=== PATIENT | male | born 1990 | race Caucasian/White ===

== ENCOUNTER 2016-11-27 19:07 | Emergency (ER) | payer SELFPAY ==
[2016-11-27] MEDS ORDERED: NS 0.9% 1000 ML* 2,000 ML IV ONE (20:26)
[2016-11-27] MEDS ORDERED: Morphine INJ* 4 MG/ML 1 ML CARPUJECT IV ONE (20:26)
[2016-11-27] MEDS ORDERED: Ondansetron INJ* 2 MG/ML VIAL IV ONE ×2 (20:26→21:17)
[2016-11-27 20:40] LABS: Hematocrit 52 % (42-52); Hemoglobin 17.8 g/dl (14.0-18.0); Mean Corpuscular HGB Conc 34 g/dl (31-36); Mean Corpuscular Hemoglobin 28 pg (27-31); Mean Corpuscular Volume 83 fL (80-94); Mean Platelet Volume 9 um3 (7.4-10.4); Red Blood Count 6.29 10^6/ul (4.0-5.4); Red Cell Distribution Width 13 % (10.5-15)
[2016-11-27 20:53] LABS: BUN/Creatinine Ratio 14.9 (8-20); Calcium 10.2 mg/dL (8.6-10.3); EGFR African American 122.9 (>60); EGFR Non-African American 95.6 (>60); Potassium 3.2 mmol/L (3.5-5.0); Total Bilirubin 0.9 mg/dL (0.2-1.0); Troponin I 0.01 ng/mL (<0.04)
--- NOTE | 2016-11-27 21:04 | RAD ---
INDICATION: Fever. Chest pain COMPARISON: January 26, 2013 TECHNIQUE: PA and lateral dual-energy views were obtained. FINDINGS: Bones/Soft Tissues: There are no acute bony findings. Cardiomediastinal: The cardiomediastinal silhouette is normal. Lungs: There are no infiltrates. Pleura: There are no pleural effusions. Other: None IMPRESSION: NORMAL CHEST.
[2016-11-27] MEDS ORDERED: Ondansetron INJ* 2 MG/ML VIAL ONE (21:16)
[2016-11-27] MEDS ORDERED: Iohexol 300* (CONTRAST) 10 ML SDV IV ONE (21:38)
[2016-11-27] MEDS ORDERED: Potassium Chlor TAB* 20 MEQ TAB.ER PO ONE (21:52)
[2016-11-27] MEDS ORDERED: Morphine INJ* 2 MG/ML 1 ML CARPUJECT IV ONE (22:07)
--- NOTE | 2016-11-27 22:10 | RAD ---
INDICATION: Fever and chest pain. Epigastric pain. Elevated white blood cell count COMPARISON: CT May 18, 2013 TECHNIQUE: Axial source images were obtained from the hemidiaphragms to the symphysis pubis following administration of oral and intravenous contrast. 125 mL Omnipaque 300 was utilized. Coronal and sagittal reconstructed images were acquired. Lung bases: The lung bases are clear. Liver: The liver is enlarged with findings of hepatic steatosis. There are no masses. There is no ductal dilatation. Gallbladder: There are no calcified gallstones. There is no evidence of wall thickening or pericholecystic fluid. Spleen: The spleen is normal in size. There are no masses. Pancreas: There is no focal pancreatic mass or ductal dilatation. Adrenal glands: There is no evidence of adrenal mass. Kidneys: The kidneys are normal in size and position. There are prompt nephrograms and there is prompt excretion bilaterally. There are no renal parenchymal masses. There is no evidence of nephrolithiasis. Adenopathy: There is no evidence of adenopathy by size criteria. Fluid collections: There are no free or localized fluid collections. Vessels:There are no significant atherosclerotic changes involving the aorta. There is no focal aneurysm. The iliac vessels are normal in caliber. The IVC appears normal. GI tract: There are no acute CT bowel findings. There is no obstruction. The stomach and small bowel appear normal. The lower GI tract is normal. The cecum, ileocecal valve, and terminal ileum appear normal. The appendix is visualized and appear normal. Pelvic organs: The prostate and seminal vesicles appear normal Bladder: There are no bladder masses. Abdominal and pelvic soft tissues: The extraperitoneal abdominal and pelvic soft tissues appear normal.. Osseous structures: There are no acute osseous findings. Other: None IMPRESSION: NO ACUTE CT FINDINGS. NO MASS OR INFLAMMATORY CHANGE.
[2016-11-27] MEDS ORDERED: Oseltamivir CAP* 75 MG PO ONE (22:24)
[2016-11-27 22:32] VITALS: BP 146/99
--- NOTE | 2016-11-27 22:35 | ED ---
Leigha Carr SooYoung, scribed for Will Hirsch on 11/27/16 at 2000 . Abdominal Pain/Male - HPI Summary HPI Summary: A 26 y/o M presents to ED with c/o abd pain onset two days. He notes having had the flu recently and had recovered. But two days ago, abd pain began with associated sx: mid-sternal chest pain and vomiting. Pt lost count of emesis episodes. Denies diarrhea. After 12 hours, he felt better, but a few hours later these sx returned. He rates the pain as 8 out of 10 currently. No PSHx. Pt is a smoker, non-drinker. PMHx: asthma. NKA. - History of Current Complaint Chief Complaint: EDAbdPain Stated Complaint: VOMITING Time Seen by Provider: 11/27/16 19:55 Hx Obtained From: Patient Onset/Duration: Lasting Days, Still Present Timing: Constant Severity Initially: Moderate Severity Currently: Moderate Pain Intensity: 8 Pain Scale Used: 0-10 Numeric Location: Diffuse Associated Signs And Symptoms: Positive: Chest Pain, Vomiting. Negative: Diarrhea - Allergies/Home Medications Allergies/Adverse Reactions: Allergies Allergy/AdvReac Type Severity Reaction Status Date / Time No Known Allergies Allergy Verified 11/27/16 19:11 PMH/Surg Hx/FS Hx/Imm Hx Previously Healthy: Yes Respiratory History: Reports: Hx Asthma GI History: Reports: Hx Gastroesophageal Reflux Disease, Hx Gastrointestinal Bleed Denies: Other GI Disorders - none History: Denies: Other Problems/Disorders Musculoskeletal History: Reports: Hx Orthopedic Injury - broken right hand- surgery to repair - Surgical History Surgery Procedure, Year, and Place: Repair of right broken wrist/hand - Immunization History Date of Tetanus Vaccine: Unsure Date of Influenza Vaccine: never Infectious Disease History: Yes Infectious Disease History: Denies: Traveled Outside the [place] in Last 30 Days - Family History Known Family History: Positive: Diabetes - Social History Occupation: Unemployed - OTHER Lives: Alone Alcohol Use: None Hx Substance Use: Yes Substance Use Type: Reports: Marijuana Hx Tobacco Use: Yes Smoking Status (MU): Current Every Day Smoker Review of Systems Positive: Chest Pain Positive: Abdominal Pain, Vomiting. Negative: Diarrhea All Other Systems Reviewed And Are Negative: Yes Physical Exam Triage Information Reviewed: Yes Vital Signs On Initial Exam: Initial Vitals Temp Pulse Resp BP Pulse Ox 97.6 F 97 18 152/96 97 11/27/16 19:09 11/27/16 19:09 11/27/16 19:09 11/27/16 19:09 11/27/16 19:09 Vital Signs Reviewed: Yes Appearance: Positive: Well-Appearing, No Pain Distress Skin: Positive: Warm, Skin Color Reflects Adequate Perfusion, Dry Head/Face: Positive: Normal Head/Face Inspection Eyes: Positive: EOMI, PILAR ENT: Positive: Normal ENT inspection Neck: Positive: Supple, Nontender Respiratory/Lung Sounds: Positive: Clear to Auscultation, Breath Sounds Present Cardiovascular: Positive: RRR, Pulses are Symmetrical in both Upper and Lower Extremities Abdomen Description: Positive: Soft, Other: - DIFFUSE ABD TENDERNESS Bowel Sounds: Positive: Present Musculoskeletal: Positive: Normal, Strength/ROM Intact - FROMx4 Neurological: Positive: Normal, Sensory/Motor Intact, Alert, Oriented to Person Place, Time Diagnostics - Vital Signs Vital Signs Temp Pulse Resp BP Pulse Ox 11/27/16 19:09 97.6 F 97 18 152/96 97 - Laboratory Result Diagrams: 11/27/16 20:00 11/27/16 20:00 Lab Statement: Any lab studies that have been ordered have been reviewed, and results considered in the medical decision making process. - Radiology CXR Xray Interpretation: No Acute Changes - IMPRESSION: NML CHEST Radiology Interpretation Completed By: Radiologist - CT A/P with CT CT Interpretation: No Acute Changes - IMPRESSION: No acute CT findings. No mass or inflammatory change. CT Interpretation Completed By: Radiologist Re-Evaluation - Re-Evaluation 1 Re-Evaluation Time: 22:21 Change: Unchanged Comment: Discussing results with pt. Abdominal Pain Fem Course/Dx - Course Course Of Treatment: MDM: Pt is a 26 y/o M with abd pain for past two days. Associated sx: vomiting, chest pain. Ordered blood work, UA, Influenza A and B, A/P CT and CXR. Pt given fluids, Zofran, Morphine. Trop at 2000 is 0.01. CXR is neg. A/P CT is negative. Labs show Influenza A is positive. Pt will be discharged home with Tamiflu and IBP to follow-up with PCP in 3 days. Pt voiced understanding. - Diagnoses Provider Diagnoses: Flu, Fever Discharge - Discharge Plan Condition: Stable Disposition: HOME Prescriptions: Ibuprofen TAB* [Motrin TAB* 600 MG] 600 mg PO Q8H PRN #21 tab PRN Reason: Pain Oseltamivir CAP* [Tamiflu CAP*] 75 mg PO BID 10 Days Oseltamivir CAP* [Tamiflu CAP*] 75 mg PO BID #10 cap Patient Education Materials: Oseltamivir (By mouth), Influenza (ED), Ibuprofen (By mouth) Referrals: No Primary Care Phys,NOPCP [Primary Care Provider] - 3 Days [facility]IAN REFERRAL [Outside] Additional Instructions: Follow up with your primary care physician in 3 days. Return to ED if your symptoms return or worsen. The documentation as recorded by the Leigha haywood SooYoung accurately reflects the service I personally performed and the decisions made by Joycelyn torres Emmanuel.
== END 2016-11-27 22:40 | disposition home or self-care (01) ==
LOC: ED 19:07
DX: J11.1 Influenza due to unidentified influenza virus with other respiratory manifestations (principal); F17.200 Nicotine dependence, unspecified, uncomplicated; J45.909 Unspecified asthma, uncomplicated; K21.9 Gastro-esophageal reflux disease without esophagitis
CPT/HCPCS: 36415; 71020; 74177; 80053; 83605; 84484; 85025; 85610; 85730; 86703; 87502; 96360; 96374; 96375; 96376; 99283; A9270-GY; J2270; J2405; Q9967

== ENCOUNTER 2016-12-26 05:37 | Emergency (ER) | payer SELFPAY ==
[2016-12-26] MEDS ORDERED: Ondansetron INJ* 2 MG/ML VIAL IV ONE (05:48)
[2016-12-26] MEDS ORDERED: NS 0.9% 1000 ML* 1,000 ML IV ONE (05:48)
[2016-12-26] MEDS ORDERED: Ketorolac INJ* 30 MG/ML 1 ML VIAL IM ONE (05:48)
[2016-12-26 06:34] LABS: Hematocrit 48 % (42-52); Mean Corpuscular HGB Conc 34 g/dl (31-36); Mean Corpuscular Hemoglobin 29 pg (27-31); Mean Corpuscular Volume 85 fL (80-94); Mean Platelet Volume 9 um3 (7.4-10.4); Red Blood Count 5.56 10^6/ul (4.0-5.4); Red Cell Distribution Width 14 % (10.5-15); White Blood Count 11.3 10^3/ul (3.5-10.8)
[2016-12-26 06:48] LABS: ALT 36 U/L (7-52); Albumin 4.5 g/dL (3.2-5.2); Alkaline Phosphatase 127 U/L (34-104); BUN/Creatinine Ratio 8.2 (8-20); Blood Urea Nitrogen 7 mg/dL (6-24); CO2 Carbon Dioxide 29 mmol/L (22-32); Calcium 9.7 mg/dL (8.6-10.3); Chloride 95 mmol/L (101-111); EGFR Non-African American 107.3 (>60); Globulin 3.5 g/dL (2-4); Glucose 163 mg/dL (70-100); Lipase 14 U/L (11.0-82.0); Sodium 134 mmol/L (133-145)
[2016-12-26] MEDS ORDERED: Iohexol 300* (CONTRAST) 10 ML SDV IV ONE (07:05)
--- NOTE | 2016-12-26 07:07 | ED ---
Georgie Carr Claudia, scribed for Will Hirsch on 12/26/16 at 0544 . Complex/Multi-Sys Presentation - HPI Summary HPI Summary: 26 YEAR OLD MALE PRESENTS TO THE ED WITH N/V AND ABD PAIN. PT NOTES SUDDEN ONSET OF SX LAST NIGHT AROUND 2200. HE STATES ASSOCIATED SX OF FEVER. HE STATES THAT HE HAS BEEN UNABLE TO PRODUCE A BM. PT ALSO DENIES PSHx OF THE ABDOMEN. HE DENIES ANY ALLEVIATING OR AGGRAVATING FACTORS FOR HIM Sx. - History Of Current Complaint Chief Complaint: EDFluSymptoms Time Seen by Provider: 12/26/16 05:42 Hx Obtained From: Patient Onset/Duration: Gradual Onset, Lasting Hours - 24 HOURS, Still Present Timing: Constant Associated Signs And Symptoms: Positive: Nausea, Vomiting, Abdominal Pain, Fever - Allergies/Home Medications Allergies/Adverse Reactions: Allergies Allergy/AdvReac Type Severity Reaction Status Date / Time No Known Allergies Allergy Verified 11/27/16 19:11 PMH/Surg Hx/FS Hx/Imm Hx Previously Healthy: Yes Endocrine/Hematology History: Denies: Hx Diabetes Respiratory History: Reports: Hx Asthma GI History: Reports: Hx Gastroesophageal Reflux Disease, Hx Gastrointestinal Bleed Denies: Other GI Disorders - none History: Denies: Other Problems/Disorders Musculoskeletal History: Reports: Hx Orthopedic Injury - broken right hand- surgery to repair - Surgical History Surgery Procedure, Year, and Place: Repair of right broken wrist/hand - Immunization History Date of Tetanus Vaccine: Unsure Date of Influenza Vaccine: never Infectious Disease History: Yes Infectious Disease History: Denies: Traveled Outside the [place] in Last 30 Days - Family History Known Family History: Positive: Diabetes - Social History Alcohol Use: None Hx Substance Use: Yes Substance Use Type: Reports: Marijuana Hx Tobacco Use: Yes Smoking Status (MU): Current Every Day Smoker Review of Systems Positive: Fever Eyes: Negative ENT: Negative Cardiovascular: Negative Respiratory: Negative Positive: Abdominal Pain, Vomiting, Nausea. Negative: Diarrhea Genitourinary: Negative Musculoskeletal: Negative Skin: Negative Neurological: Negative Psychological: Normal All Other Systems Reviewed And Are Negative: Yes Physical Exam Triage Information Reviewed: Yes Vital Signs On Initial Exam: Initial Vitals Temp Pulse Resp BP Pulse Ox 99.1 F 90 16 156/88 98 12/26/16 05:39 12/26/16 05:39 12/26/16 05:39 12/26/16 05:39 12/26/16 05:39 Vital Signs Reviewed: Yes Appearance: Positive: Well-Appearing, No Pain Distress Skin: Positive: Warm, Skin Color Reflects Adequate Perfusion, Dry Head/Face: Positive: Normal Head/Face Inspection Eyes: Positive: EOMI, PILAR ENT: Positive: Normal ENT inspection Neck: Positive: Supple, Nontender Respiratory/Lung Sounds: Positive: Clear to Auscultation, Breath Sounds Present Cardiovascular: Positive: RRR, Pulses are Symmetrical in both Upper and Lower Extremities Abdomen Description: Positive: Soft. Negative: Nontender - DIFFUSE TENDERNESS Musculoskeletal: Positive: Normal, Strength/ROM Intact Neurological: Positive: Normal, Sensory/Motor Intact, Alert, Oriented to Person Place, Time Diagnostics - Vital Signs Vital Signs Temp Pulse Resp BP Pulse Ox 12/26/16 05:39 99.1 F 90 16 156/88 98 - Laboratory Lab Results: Lab Results 12/26/16 12/26/16 12/26/16 Range/Units 05:58 06:25 06:25 WBC 11.3 H (3.5-10.8) 10^3/ul RBC 5.56 H (4.0-5.4) 10^6/ul Hgb 16.0 (14.0-18.0) g/dl Hct 48 (42-52) % MCV 85 (80-94) fL MCH 29 (27-31) pg MCHC 34 (31-36) g/dl RDW 14 (10.5-15) % Plt Count 279 (150-450) 10^3/ul MPV 9 (7.4-10.4) um3 Neut % (Auto) 74.9 (38-83) % Lymph % (Auto) 14.7 L (25-47) % [place] % (Auto) 9.4 H (1-9) % Eos % (Auto) 0.2 (0-6) % Baso % (Auto) 0.8 (0-2) % Absolute Neuts (auto) 8.5 H (1.5-7.7) 10^3/ul Absolute Lymphs (auto) 1.7 (1.0-4.8) 10^3/ul Absolute Monos (auto) 1.1 H (0-0.8) 10^3/ul Absolute Eos (auto) 0 (0-0.6) 10^3/ul Absolute Basos (auto) 0.1 (0-0.2) 10^3/ul Absolute Nucleated RBC 0.01 10^3/ul Nucleated RBC % 0.1 Sodium 134 (133-145) mmol/L Potassium TNP Chloride 95 L (101-111) mmol/L Carbon Dioxide 29 (22-32) mmol/L Anion Gap TNP BUN 7 (6-24) mg/dL Creatinine 0.85 (0.67-1.17) mg/dL Est GFR ( Amer) 138.0 (>60) Est GFR (Non-Af Amer) 107.3 (>60) BUN/Creatinine Ratio 8.2 (8-20) Glucose 163 H (70-100) mg/dL Calcium 9.7 (8.6-10.3) mg/dL Total Bilirubin 0.30 (0.2-1.0) mg/dL AST TNP ALT 36 (7-52) U/L Alkaline Phosphatase 127 H (34-104) U/L Total Protein 8.0 (6.4-8.9) g/dL Albumin 4.5 (3.2-5.2) g/dL Globulin 3.5 (2-4) g/dL Albumin/Globulin Ratio 1.3 (1-3) Lipase 14 (11.0-82.0) U/L Influenza A (Rapid) Negative (Negative) Influenza B (Rapid) Negative (Negative) Result Diagrams: 12/26/16 06:25 12/26/16 06:25 Lab Statement: Any lab studies that have been ordered have been reviewed, and results considered in the medical decision making process. Complex Multi-Symp Course/Dx - Diagnoses Provider Diagnoses: Abdominal pain Discharge - Discharge Plan Condition: Stable Disposition: OTHER Discharge Disposition Comment: SIGNED OUT TO DR. JALLOH 7:00AM Referrals: No Primary Care Phys,NOPCP [Primary Care Provider] - The documentation as recorded by the Georgie haywood Claudia accurately reflects the service I personally performed and the decisions made by , Will Hirsch.
--- NOTE | 2016-12-26 09:21 | RAD ---
CLINICAL HISTORY: [place]'s, appendicitis, congestion, vomiting, fever, body aches COMPARISON: None TECHNIQUE: Multiple contiguous axial CT scans were obtained of the abdomen and pelvis after the administration of intravenous contrast. Coronal and sagittal multiplanar reformations are submitted for review. FINDINGS: LUNG BASES: The lung bases are clear. LIVER: The liver is diffusely low in attenuation compared to the spleen. There are no focal hepatic parenchymal masses. BILE DUCTS: There is no intrahepatic or extrahepatic biliary dilatation. GALLBLADDER: The gallbladder is normal, without pericholecystic inflammatory change. PANCREAS: The pancreas is normal, without mass or ductal dilatation. SPLEEN: Normal in size and appearance. UPPER GI TRACT: Evaluation of the gastrointestinal tract is limited by incomplete gastric distention. The upper GI tract is unremarkable. SMALL BOWEL AND MESENTERY: The small bowel is normal in contour, course, and caliber. There is no obstruction or dilatation. COLON: There is mucosal thickening of the sigmoid colon, without pericolonic inflammatory change. This is best seen on axial image 143.. There is a tubular, vermiform, hollow viscus that is blind ending, and originates from the cecum, consistent with a normal appendix. There is no periappendiceal inflammatory change. This is best seen on axial images 100 through 119 ADRENALS: Normal bilaterally. KIDNEYS: The kidneys are normal in shape, size, contour, and axis. There is no hydronephrosis or nephrolithiasis. BLADDER: The bladder is smooth in contour. PELVIC ORGANS: The prostate gland is normal. The seminal vesicles are symmetric. AORTA: The aorta is normal. IVC: Unremarkable LYMPH NODES: There is no lymphadenopathy by size criteria. ABDOMINAL WALL: There is no evidence for abdominal wall hernia. BONES AND SOFT TISSUES: There are mild diffuse degenerative changes. OTHER: None IMPRESSION: 1. NORMAL APPENDIX. 2. MILD MUCOSAL THICKENING OF THE SIGMOID COLON. THIS MAY BE AN ARTIFACT OF INCOMPLETE DISTENTION AND PERISTALSIS, THOUGH COLITIS MAY GIVE A SIMILAR APPEARANCE. 3. FATTY INFILTRATION OF THE LIVER
[2016-12-26 09:51] VITALS: BP 139/75
--- NOTE | 2016-12-26 12:53 | ED ---
Rosana Carr Matthew, scribed for Kartik Bui MD on 12/26/16 at 0754 . Progress - Progress Note Progress Note: The patient is a sign out from Dr. Hirsch. He present with epigastric pain and vomiting that started last night. He also noted a recent infected tooth that was draining blood and pus. The patient states that he swallowed the drainage, and believes this may have caused his pain. Currently, the patient states that he feels much better. Left upper posterior mole is decayed, but not tender to percussion. The patient is in stable condition and will be discharged home. - Results/Orders Results/Orders: A/P CT Impression: IMPRESSION: 1. NORMAL APPENDIX. 2. MILD MUCOSAL THICKENING OF THE SIGMOID COLON. THIS MAY BE AN ARTIFACT OF INCOMPLETE DISTENTION AND PERISTALSIS, THOUGH COLITIS MAY GIVE A SIMILAR APPEARANCE. 3. FATTY INFILTRATION OF THE LIVER Re-Evaluation - Re-Evaluation First Eval Re-Evaluation Time: 09:46 Change: Improved Comment: Labs and imaging were reviewed with the patient. He states that he feels better. The patient agrees with the treatment plan and will follow-up with his PCP. Course/Dx - Diagnoses Provider Diagnoses: Abdominal pain The documentation as recorded by the Rosana haywood Matthew accurately reflects the service I personally performed and the decisions made by me, Kartik Bui MD.
== END 2016-12-26 09:54 | disposition home or self-care (01) ==
LOC: ED 05:37
DX: R10.13 Epigastric pain (principal); R11.2 Nausea with vomiting, unspecified; R50.9 Fever, unspecified; K21.9 Gastro-esophageal reflux disease without esophagitis; J45.909 Unspecified asthma, uncomplicated; F17.290 Nicotine dependence, other tobacco product, uncomplicated; F12.90 Cannabis use, unspecified, uncomplicated
CPT/HCPCS: 36415; 74177; 80053; 83690; 85025; 87502; 96361; 96372; 96374; 96375; 99284; J1885; J2405; Q9967

== ENCOUNTER 2017-01-15 07:28 | Inpatient (IN) | payer SELFPAY ==
[2017-01-15] MEDS ORDERED: NS 0.9% 1000 ML* 1,000 ML IV ONE ×2 (07:30→12:54)
--- NOTE | 2017-01-15 07:36 | ED ---
Abdominal Pain/Male - HPI Summary HPI Summary: Pt presents to the ED by EMS. Pt states starting yesterday develop nausea and vomiting at 10am. Pt states has had repeated vomiting - non-bilious, non- bloody. Pt denies diarrhea. Pt reports increasing abd pain - epigastric and lower abd. No sick contact. no dysuria, hematuria. no fever, rash + chills. Pt states last time this happened had the flu. No current PMD. Pt with h/o HTN, Hep C - no active treatment - History of Current Complaint Stated Complaint: ABD PAIN Time Seen by Provider: 01/15/17 07:29 Hx Obtained From: Patient Onset/Duration: Gradual Onset Timing: Lasting Hours Severity Initially: Mild Severity Currently: Moderate Pain Intensity: 7 Pain Scale Used: 0-10 Numeric Location: Discrete At: RLQ, Discrete At: LLQ, Epigastric Radiates: No Radiates to: Chest Character: Burning, Cramping Aggravating Factor(s): Nothing Alleviating Factor(s): Nothing Associated Signs And Symptoms: Positive: Negative, Decreased Appetite, Nausea, Vomiting. Negative: Fever, Cough - Allergies/Home Medications Allergies/Adverse Reactions: Allergies Allergy/AdvReac Type Severity Reaction Status Date / Time No Known Allergies Allergy Verified 11/27/16 19:11 PMH/Surg Hx/FS Hx/Imm Hx Endocrine/Hematology History: Reports: Hx Diabetes - "borderline" no med Denies: Hx Anticoagulant Therapy Cardiovascular History: Reports: Hx Hypertension Respiratory History: Reports: Hx Asthma GI History: Reports: Hx Gastroesophageal Reflux Disease, Hx Gastrointestinal Bleed, Other GI Disorders - hepatitis History: Denies: Other Problems/Disorders Musculoskeletal History: Reports: Hx Orthopedic Injury - broken right hand- surgery to repair - Surgical History Surgery Procedure, Year, and Place: Repair of right broken wrist/hand - Immunization History Date of Tetanus Vaccine: Unsure Date of Influenza Vaccine: never - Family History Known Family History: Positive: Diabetes - Social History Occupation: Unemployed Alcohol Use: None Hx Substance Use: Yes Substance Use Type: Reports: Marijuana Hx Tobacco Use: Yes Smoking Status (MU): Current Every Day Smoker - 1ppd Review of Systems Positive: Chills Eyes: Negative ENT: Negative Cardiovascular: Negative Negative: Chest Pain Respiratory: Negative Negative: Shortness Of Breath, Cough Gastrointestinal: Negative Positive: Abdominal Pain, Vomiting, Nausea Genitourinary: Negative Musculoskeletal: Negative Skin: Negative Neurological: Negative Psychological: Normal All Other Systems Reviewed And Are Negative: Yes Physical Exam Triage Information Reviewed: Yes Vital Signs Reviewed: Yes Appearance: Positive: Well-Appearing, Well-Nourished, Pain Distress - mild discomfort Skin: Positive: Warm, Skin Color Reflects Adequate Perfusion, Dry Head/Face: Positive: Normal Head/Face Inspection Eyes: Positive: Normal, EOMI, PILAR ENT: Positive: Normal ENT inspection, TMs normal Neck: Positive: Supple, Nontender, No Lymphadenopathy Respiratory/Lung Sounds: Positive: Clear to Auscultation, Breath Sounds Present Cardiovascular: Positive: Normal, RRR. Negative: Murmur Abdomen Description: Positive: Soft. Negative: Nontender - + TTP mild epigastric + TTP b/l LQ R>L no guarding no rebund, Distended Bowel Sounds: Positive: Present Musculoskeletal: Positive: Normal Neurological: Positive: Normal, Sensory/Motor Intact, Alert, Oriented to Person Place, Time Psychiatric: Positive: Normal AVPU Assessment: Alert - Bryan Coma Scale Best Eye Response: 4 - Spontaneous Best Motor Response: 6 - Obeys Commands Best Verbal Response: 5 - Oriented Diagnostics - Laboratory Result Diagrams: 01/15/17 07:50 01/15/17 09:00 Lab Statement: Any lab studies that have been ordered have been reviewed, and results considered in the medical decision making process. - CT No standard instances CT Interpretation: Positive (See Comments) - IMPRESSION: APPARENT MILD MUCOSAL THICKENING OF THE SIGMOID COLON MAY BE RELATED TO A COLITIS. HEPATIC STEATOSIS. <Electronically signed by Nakul Day MD in [place]> 01/15/17 1138 Dictated By: Nakul Day MD Dictated Date/Time: 01/15/17 1138 Transcribed Date/Time: 01/15/[address] Interpretation Completed By: Radiologist Re-Evaluation - Re-Evaluation First Eval Re-Evaluation Time: 11:20 Change: Improved - Pt states sx improved - drinking contrast awaiting CT Second Eval Re-Evaluation Time: 12:15 Comment: Pt with recurrent vomiting x 3 episodes, discomfort - will goive zofran. Will give IVF. pt with small colitis - no PCP. Will start abx and d/ w hosp regarding OBV. Pt in agreement with plan Abdominal Pain Fem Course/Dx - Course Course Of Treatment: 35: pt drinking contrast - states feels better - no nausea, vomiting - no current needs Assessment/Plan: Pt with a h/o hepatitis, htn presents with 24 hour n/v and epigastic pain. Diff includes gastritis, pancreatitis, gastroenteritis, elevated LFT from hepatitis, colitis, diverticulitis, appendicitis. Will check labs, CT, urine. protonix, maalox, zofran. IVF. reassess - Diagnoses Provider Diagnoses: Vomiting, Colitis - Provider Notifications Discussed Care Of Patient With: Dr. Sun [id number] - obv Time Discussed With Above Provider: 12:27 Instructed by Provider To: Admit As Observation Discharge - Discharge Plan Condition: Stable Disposition: ADMITTED TO [facility]
[2017-01-15] MEDS ORDERED: Pantoprazole IV* 40 MG IV ONE (07:42)
[2017-01-15] MEDS ORDERED: Ondansetron INJ* 2 MG/ML VIAL IV ONE ×2 (07:42→11:49)
[2017-01-15] MEDS ORDERED: Al Hydrox/Mg Hydrox/Simet LIQ* 30 ML UDC PO ONE (07:42)
[2017-01-15 08:05] LABS: Hematocrit 53 % (42-52); Hemoglobin 17.9 g/dl (14.0-18.0); Mean Corpuscular HGB Conc 34 g/dl (31-36); Mean Corpuscular Hemoglobin 29 pg (27-31); Mean Corpuscular Volume 85 fL (80-94); Mean Platelet Volume 9 um3 (7.4-10.4); Red Blood Count 6.17 10^6/ul (4.0-5.4); Red Cell Distribution Width 14 % (10.5-15); White Blood Count 16.6 10^3/ul (3.5-10.8)
[2017-01-15 08:24] LABS: ALT 46 U/L (7-52); Albumin 5.2 g/dL (3.2-5.2); Alkaline Phosphatase 142 U/L (34-104); BUN/Creatinine Ratio 15.5 (8-20); Blood Urea Nitrogen 18 mg/dL (6-24); CO2 Carbon Dioxide 24 mmol/L (22-32); Calcium 10.5 mg/dL (8.6-10.3); Chloride 93 mmol/L (101-111); EGFR African American 96.4 (>60); Globulin 4.2 g/dL (2-4); Glucose 192 mg/dL (70-100); Lipase 10 U/L (11.0-82.0); Sodium 132 mmol/L (133-145); Total Protein 9.4 g/dL (6.4-8.9)
[2017-01-15] MEDS ORDERED: Iodixanol* (CONTRAST) 320 MG/ML 100 ML SDV IV ONE (08:32)
[2017-01-15] MEDS ORDERED: NS 0.9% 1000 ML* 2,000 ML IV ONE (08:41)
--- NOTE | 2017-01-15 11:41 | RAD ---
INDICATION: Bilateral lower abdominal pain. Vomiting. COMPARISON: CT and pelvis December 26, 2016; CT abdomen and pelvis November 27, 2016 TECHNIQUE: Axial source images were obtained from the hemidiaphragms to the symphysis pubis following administration of oral and intravenous contrast. 130 mL Omnipaque 300 was utilized. Coronal and sagittal reconstructed images were acquired. Lung bases: The lung bases are clear. Liver: The liver is mildly enlarged with findings of hepatic steatosis. There are no masses. There is no ductal dilatation. Gallbladder: There are no calcified gallstones. There is no evidence of wall thickening or pericholecystic fluid. Spleen: The spleen is normal in size. There are no masses. Pancreas: There is no focal pancreatic mass or ductal dilatation. Adrenal glands: There is no evidence of adrenal mass. Kidneys: The kidneys are normal in size and position. There are prompt nephrograms and there is prompt excretion bilaterally. There are no renal parenchymal masses. There is no evidence of nephrolithiasis. Adenopathy: There is no evidence of adenopathy by size criteria. Fluid collections: There are no free or localized fluid collections. Vessels:There are no significant atherosclerotic changes involving the aorta. There is no focal aneurysm. The iliac vessels are normal in caliber. The IVC appears normal. GI tract: The upper GI tract is unremarkable. There is apparent mild mucosal thickening of the sigmoid colon which could be related to adequate distention although colitis may give a similar appearance. There are scant diverticula but no CT evidence of acute diverticulitis The remainder the lower GI tract is unremarkable. The appendix is visualized and appears normal Pelvic organs: The prostate and seminal vesicles appear normal Bladder: There are no bladder masses. Abdominal and pelvic soft tissues: The extraperitoneal abdominal and pelvic soft tissues appear normal.. Osseous structures: There are no acute osseous findings. Other: None IMPRESSION: APPARENT MILD MUCOSAL THICKENING OF THE SIGMOID COLON MAY BE RELATED TO A COLITIS. HEPATIC STEATOSIS.
[2017-01-15] MEDS ORDERED: metroNIDAZOLE IV 500 MG/100ML* 500 MG/100 ML BAG IVPB ONE (12:28)
[2017-01-15] MEDS ORDERED: Ciprofloxacin 400MG IVPREMIX(* 400 MG/200 ML BAG IVPB ONE (12:28)
[2017-01-15] MEDS ORDERED: NS 0.9% 1000 ML* 1,000 ML IV SCH (12:30)
[2017-01-15] MEDS ORDERED: Acetaminophen TAB* 325 MG PO PRN (12:54)
[2017-01-15] MEDS ORDERED: Albuterol 2.5 MG/3 ML NEB.SOL* (0.083%) INH PRN (13:08)
--- NOTE | 2017-01-15 16:27 | HP ---
ATTENDING PHYSICIAN ADDENDUM INCLUDED ON THIS REPORT HISTORY AND PHYSICAL: DATE OF ADMISSION: 01/15/17 PRIMARY CARE PROVIDER: None. ATTENDING PHYSICIAN WHILE IN THE HOSPITAL: Shanae Sun MD * (report dictated by Nils Bustamante NP). CHIEF COMPLAINT: 1. Abdominal pain. 2. Nausea and vomiting. 3. Diarrhea. HISTORY OF PRESENT ILLNESS: Mr. Watson is a 26-year-old male patient with a history of cyclic vomiting syndrome and abdominal migraines thought secondary to marijuana use. He present today stating that he started having abdominal discomfort 2 days ago. He says it starts really in the epigastric area, radiates down up into his chest, then he starts to get nauseous and he vomits, and when he starts to vomit he starts getting a generalized abdominal pain. He states the discomfort has been going off and on the last couple of days. He has a history of feeling discomfort like this. He states he typically if he feels it coming on, he will take a warm shower and this stops the discomfort. He unfortunately 2 days ago was unable to do this, as his brother was taking a shower. He states that he has also started having some diarrhea. He states that the diarrhea has been mostly greenish looking, there has not been any tarry stools and there has not been any blood in the stool. He states when he vomits, it sounds like it is mostly green and bilious and he has not been having any coffee-ground emesis or any marley blood. He states he has been having chills, it has been aching all over. He was concerned because he has had episodes like this in the past and he decided to come into the hospital to be evaluated. He also has been taking good p.o. intake. He was evaluated in the ED, it was ultimately found that he had a white count of 16,000. A CT scan did show some colitis, and the hospitalist service was asked to evaluate for admission. PAST MEDICAL HISTORY: Significant for: 1. Cyclic vomiting syndrome. 2. Asthma. 3. Abdominal migraines. 4. Hypertension, although not on any medications. 5. Hepatitis C. 6. He thinks he is a borderline diabetic as well. PAST SURGICAL HISTORY: Denied. HOME MEDICATIONS: Denied. ALLERGIES TO MEDICATIONS: Include no known drug allergies. FAMILY HISTORY: Both of his parents were diabetics and they also had heart disease as well and RI's. SOCIAL HISTORY: He does smoke marijuana, he states he thinks like on an every other day basis. He is smoking about a pack of cigarettes a day, he has been doing that for about 10 years. Does not drink alcohol. Currently unemployed. He has 2 children. Surrogate decision maker is his papiancee, Fercho. REVIEW OF SYSTEMS: There is no documented fever. He denied any significant weight change. No double vision. There is no ear discharge. He denies having any rhinorrhea. There is no sore throat. No thyroid enlargement. Denies having any chest pain currently, he did admit to having some with vomiting. There is epigastric abdominal pain and generalized abdominal pain with nausea and vomiting. No orthopnea, no nocturnal dyspnea. No shortness of breath. No dysuria. No frequency. No loss of consciousness. No pruritus and no skin ulcerations. Review of 14 systems completed, all others negative. PHYSICAL EXAMINATION GENERAL: At this time, Mr. Watson is a 26-year-old male patient who appears well nourished, well developed. He is sitting in the ER stretcher. VITAL SIGNS: Blood pressure 119/77, pulse 88, respirations 18, O2 sat 93%, temperature 98.8. HEENT: Head atraumatic, normocephalic. Eyes: EOMs intact. Sclerae are anicteric and not pale. Throat: Oral mucosa appears to be moist. No oropharyngeal erythema. NECK: Supple. LUNGS: Clear to auscultation. No wheezing, rales or rhonchi. HEART: Sounds S1, S2. Regular rate and rhythm. No murmurs, rubs or gallops. ABDOMEN: Soft, flat, nontender. Bowel sounds present. EXTREMITIES: Pulses 2+ throughout. He is able to move all 4 extremities with 5 /5 strength. NEUROLOGIC: The patient is awake, he is alert and oriented x3. Tongue midline. Hog Operator equal. No gross focal deficits. SKIN: Grossly intact. LABORATORY DATA: Labs today revealed WBC 16.6, RBC 6.17, hemoglobin 17.9, hematocrit 53, platelet count of 382. His baseline hematocrit is 45. Sodium 132, potassium 3.6, chloride 93, bicarb 24, BUN 18, creatinine 1.16. His baseline creatinine is 0.7. Glucose was 192, magnesium 2.0, total bili 0.5, AST 14, ALT 46, alk phos 142, albumin 5.2. Serology was negative. He had abdominal and pelvis CT scan obtained today, which showed apparent mild mucosal thickening of the sigmoid colon, maybe related to colitis, hepatic steatosis. Old medical records were reviewed. ASSESSMENT AND PLAN: Mr. Watson is a 26-year-old male patient coming into the ER today with complaints of nausea and vomiting, on CT scan found to have mild colitis. In addition, he was also found to have leukocytosis. He will be admitted under observation status for: 1. Abdominal pain with nausea and vomiting. I suspect this is probably a cyclic vomiting syndrome. I did instruct him to abstain from smoking marijuana. My plan at this point is to go ahead and put him on antiemetics, hydrate him and continue to monitor. 2. Leukocytosis. At this point, probably secondary to dehydration and leukemoid reaction. He is not having any fever, so I do not think there is a role for antibiotics, but I am going to cesar culture him and will continue to follow. 3. Colitis. Again, he probably has a gastroenteritis as well. I think it is probably viral. I think we will hydrate him. I do not think there is a role for antibiotics, so at this point it is a mild case. We will go ahead and hydrate him with fluids, antiemetics, supportive care, clear liquid diet. If he spikes a fever, I will put him on Flagyl and Cipro but we will continue to monitor him. 4. Asthma, not an active issue currently, but I will order p.r.n., albuterol in case he needs it. 5. History of hypertension, currently not on medications. Blood pressure is 119/77. We will monitor this. 6. History of hepatitis C, we will need to establish a primary for him. 7. History of borderline diabetes, I will check an A1c. 8. Hypercalcemia probably secondary to dehydration. 9. Hyponatremic. Again it is mild, it is probably secondary to dehydration. Again, we will follow. 10. DVT prophylaxis, he will be placed on SCD's. 11. Code status: Full code. 12. Fluids, electrolytes and nutrition, clear liquid diet. TIME SPENT: On the admission was approximately 60 minutes, greater than half the time was spent [id number] with the patient obtaining my history and physical, other half of the time spent going over the plan of care with the patient and implementing the plan of care. I discussed the plan of care with my attending, Dr. Sun, who is in agreement. NILS BUSTAMANTE NP ADDENDUM: DATE OF ADMISSION: 01/15/17 Mr. Watson is a 26-year-old male with a history of marijuana use and history of episodes of vomiting in the past, questionable cyclic vomiting syndrome who presents complaining of nausea and vomiting once again. The patient continues to smoke marijuana. He is going to be placed on observation. For further details of the patient's presentation and plan, please see history and physical dictated by Nils Bustamante NP on 01/15/17 with which I [place] [id number]/[facility] #: [id number]/[facility]PS #: [id number] ADDISON
--- NOTE | 2017-01-15 17:16 | HP ---
HISTORY AND PHYSICAL:* ADDENDUM: DATE OF ADMISSION: 01/15/17 Mr. Watson is a 26-year-old male with a history of marijuana use and history of episodes of vomiting in the past, questionable cyclic vomiting syndrome who presents complaining of nausea and vomiting once again. The patient continues to smoke marijuana. He is going to be placed on observation. For further details of the patient's presentation and plan, please see history and physical dictated by Nils Bustamante NP on 01/15/17 with which I agree. [id number]/[facility] #: [id number] MTDD
[2017-01-15] MEDS: Ondansetron INJ* 2 MG/ML VIAL IV PRN (17:48)
[2017-01-15] MEDS: NS 0.9% 1000 ML* 1,000 ML IV SCH (17:49)
[2017-01-15 19:56] LABS: Urine Bacteria Absent (Absent); Urine Bilirubin Negative (Negative); Urine Glucose Negative (Negative); Urine Nitrite Negative (Negative)
[2017-01-16] MEDS: PROCHLORPERAZINE INJ 5 MG/ML 2 ML VIAL IV PRN ×3 (00:22→17:13)
[2017-01-16] MEDS: NS 0.9% 1000 ML* 1,000 ML IV SCH ×2 (02:39→14:02)
[2017-01-16 06:18] LABS: Hematocrit 44 % (42-52); Hemoglobin 14.5 g/dl (14.0-18.0); Mean Corpuscular HGB Conc 33 g/dl (31-36); Mean Corpuscular Hemoglobin 29 pg (27-31); Mean Corpuscular Volume 86 fL (80-94); Mean Platelet Volume 8 um3 (7.4-10.4); Red Blood Count 5.05 10^6/ul (4.0-5.4); Red Cell Distribution Width 14 % (10.5-15); White Blood Count 9.8 10^3/ul (3.5-10.8)
[2017-01-16 06:50] LABS: BUN/Creatinine Ratio 9.9 (8-20); Calcium 8.4 mg/dL (8.6-10.3); EGFR African American 145.9 (>60); EGFR Non-African American 113.5 (>60); HDL Cholesterol 20.2 mg/dL; Potassium 3.3 mmol/L (3.5-5.0)
[2017-01-16] MEDS ORDERED: Influenza VAC *QUAD* 2016-17* 0.5 ML SYRINGE IM ONE (09:00)
[2017-01-16] MEDS: Ondansetron INJ* 2 MG/ML VIAL IV PRN ×3 (09:08→23:39)
--- NOTE | 2017-01-16 20:20 | PN ---
Subjective Date of Service: 01/16/17 Interval History: Patient continues to complain of severe epigastric abdominal pain with persistent nausea/vomiting. He states that this is the same as previous episodes that he has had for at least a decade though this episode seems to be lasting longer than usual. He reports that he has stopped smoking marijuana for 6 months but that his episodes of cyclic vomiting were actually worsened. He does report resuming marijuana with his last exposure being on Friday. He vomiting started on Friday. Objective Active Medications: Acetaminophen (Tylenol Tab*) 650 mg PO Q4H PRN Albuterol (Ventolin 2.5 Mg/3 Ml Neb.Abi*) 2.5 mg INH Q2H PRN Sodium Chloride (Ns 0.9% 1000 Ml*) 1,000 mls @ 125 mls/hr IV PER RATE THOMPSON Morphine Sulfate (Morphine Inj (Syringe)*) 2 mg IV Q4H PRN Ondansetron HCl (Zofran Inj*) 4 mg IV Q6H PRN Prochlorperazine Edisylate (Compazine Inj*) 5 mg IV Q6H PRN Vital Signs 01/15/17 01/16/17 01/16/17 23:52 03:44 07:41 Temperature 98.0 F 98.1 F 98.0 F Pulse Rate 52 59 68 Respiratory 16 18 16 Rate Blood Pressure 98/52 113/60 141/82 (mmHg) O2 Sat by Pulse 97 99 99 Oximetry 01/16/17 01/16/17 01/16/17 08:00 11:20 17:05 Temperature 98.1 F Pulse Rate 77 Respiratory 16 16 Rate Blood Pressure 179/103 (mmHg) O2 Sat by Pulse 95 96 Oximetry Oxygen Devices in Use Now: None Appearance: Male sitting up in bed in NAD Respiratory: Symmetrical Chest Expansion and Respiratory Effort, Clear to Auscultation Cardiovascular: NL Sounds; No Murmurs; No JVD, No Edema Abdominal: NL Sounds; No Tenderness; No Distention Extremities: No Edema Skin: No Rash or Ulcers Neurological: Alert and Oriented x 3, NL Muscle Strength and Tone Nutrition: Taking PO's Result Diagrams: 01/16/17 05:54 01/16/17 05:54 Microbiology and Other Data: Microbiology 01/15/17 19:32 Urine Culture - Final Urine No Growth (<1,000 CFU/mL) 01/15/17 13:37 Aerobic Blood Culture - Preliminary Blood Venous No Growth Day 1 Anaerobic Blood Culture - Preliminary No Growth Day 1 01/15/17 13:45 Aerobic Blood Culture - Preliminary Blood Venous No Growth Day 1 Anaerobic Blood Culture - Preliminary No Growth Day 1 01/15/17 19:32 Stool Gross Appearance - Final Stool Stool Lactoferrin - Final Rotavirus Antigen - Final Negative Rotavirus Assess/Plan/Problems-Billing Assessment: Mr. Watson is a 26 yo male with a PMH of cyclic vomiting suspected to be secondary to marijuana or perhaps abdominal migraines who was admitted on with persistent abdominal pain and vomiting. - Patient Problems (1) Vomiting Comment: This episode is lasting longer than previous episodes. Patient not tolerating oral intake. Plan to monitor overnight. Continue antiemetics and pain meds. If not resolved by AM, plan to consult GI. Continue to suspect secondary to abdominal migraines. Previous upper endoscopy unrevealing. CT abd shows concern for mild wall thickening in colon only. (2) DVT prophylaxis Comment: SCDs. Status and Disposition: Convert to inpatient with expected LOS > 2 days for persistent uncontrolled nausea with vomiting. Anticipate discharge to home when medically stable.
[2017-01-16] MEDS: Morphine INJ* 2 MG/ML 1 ML SYRINGE IV PRN (23:39)
[2017-01-17] MEDS: NS 0.9% 1000 ML* 1,000 ML IV SCH (04:31)
[2017-01-17] MEDS: Ondansetron INJ* 2 MG/ML VIAL IV PRN (06:21)
[2017-01-17] MEDS: Morphine INJ* 2 MG/ML 1 ML SYRINGE IV PRN (06:32)
[2017-01-17] MEDS: PROCHLORPERAZINE INJ 5 MG/ML 2 ML VIAL IV PRN (07:24)
[2017-01-17 07:53] VITALS: BP 168/93
--- NOTE | 2017-01-17 09:32 | PN ---
Subjective Date of Service: 01/17/17 Interval History: Mr. Watson's nausea and vomiting have resolved and he is eager for discharge to home. Objective Active Medications: Acetaminophen (Tylenol Tab*) 650 mg PO Q4H PRN Albuterol (Ventolin 2.5 Mg/3 Ml Neb.Abi*) 2.5 mg INH Q2H PRN Sodium Chloride (Ns 0.9% 1000 Ml*) 1,000 mls @ 125 mls/hr IV PER RATE THOMPSON Morphine Sulfate (Morphine Inj (Syringe)*) 2 mg IV Q4H PRN Ondansetron HCl (Zofran Inj*) 4 mg IV Q6H PRN Prochlorperazine Edisylate (Compazine Inj*) 5 mg IV Q6H PRN Vital Signs 01/16/17 01/16/17 01/17/17 21:21 23:39 00:39 Temperature 98.7 F Pulse Rate 69 Respiratory 18 16 Rate Blood Pressure 132/65 (mmHg) O2 Sat by Pulse 96 95 Oximetry 01/17/17 01/17/17 01/17/17 06:32 07:32 07:36 Temperature 98.0 F Pulse Rate 79 Respiratory 20 18 16 Rate Blood Pressure 168/93 (mmHg) O2 Sat by Pulse 95 Oximetry Oxygen Devices in Use Now: None Appearance: Male lying in bed in NAD Respiratory: Symmetrical Chest Expansion and Respiratory Effort, Clear to Auscultation Cardiovascular: NL Sounds; No Murmurs; No JVD, No Edema Abdominal: NL Sounds; No Tenderness; No Distention Extremities: No Edema Skin: No Rash or Ulcers Neurological: Alert and Oriented x 3, NL Muscle Strength and Tone Nutrition: Taking PO's Result Diagrams: 01/16/17 05:54 01/16/17 05:54 Microbiology and Other Data: Microbiology 01/15/17 19:32 Urine Culture - Final Urine No Growth (<1,000 CFU/mL) 01/15/17 13:37 Aerobic Blood Culture - Preliminary Blood Venous No Growth Day 1 Anaerobic Blood Culture - Preliminary No Growth Day 1 01/15/17 13:45 Aerobic Blood Culture - Preliminary Blood Venous No Growth Day 1 Anaerobic Blood Culture - Preliminary No Growth Day 1 01/15/17 19:32 Stool Gross Appearance - Final Stool Stool Lactoferrin - Final Rotavirus Antigen - Final Negative Rotavirus Assess/Plan/Problems-Billing Assessment: Mr. Watson is a 26 yo male with a PMH of cyclic vomiting suspected to be secondary to marijuana or perhaps abdominal migraines who was admitted on with persistent abdominal pain and vomiting. - Patient Problems (1) Vomiting Comment: Resolved. Encouraged patient to obtain PCP, follow up with GI, and seek out alternative therapies such as acupuncture. (2) DVT prophylaxis Comment: SCDs. Status and Disposition: Discharge to home.
--- NOTE | 2017-01-18 00:10 | DS ---
HOSPITAL MEDICINE DISCHARGE SUMMARY: DATE OF ADMISSION: 01/15/17 DATE OF DISCHARGE: 01/17/17 PRIMARY CARE PHYSICIAN: None. ATTENDING PHYSICIAN: Dr. Wan Cook *(dictation provided by Courtney Marques NP ) PRIMARY DIAGNOSIS: Cyclic vomiting. SECONDARY DIAGNOSES: 1. Asthma. 2. Abdominal migraines. 3. Hypertension. 4. Hepatitis C. 5. Question of borderline diabetes. MEDICATIONS: None. HOSPITAL COURSE: Mr. Watson is a 26-year-old male with a past medical history of multiple episodes for over 10 years of cyclic vomiting. He presented to the hospital with a repeat episode and was unable to control his nausea and vomiting and therefore was admitted. Please see the dictated H and P from Nils Bustamante NP for complete details. I will note at the time of admission, the patient had abdominal pelvis CT which showed the following: "Apparent mild mucosal thickening of the sigmoid colon, may be related to colitis, hepatic steatosis." The patient's initial white count was 16.6. Mr. Watson was admitted to the hospital. He was given antiemetics routinely for nausea and vomiting, which persisted through the day yesterday. Overnight, his nausea and vomiting finally resolved. He has been eating and drinking normally. He has no further complaints. His white count is back to normal. His vital signs are stable. Mr. Watson is medically stable for discharge to home. I have encouraged him to obtain a primary care physician to help coordinate his care and he states intention to do so. I have also encouraged him to follow up with the Gastroenterology with whom he last had a consultation and endoscopy in 2012 for ongoing management of cyclic vomiting syndrome. The patient states that he has made a trial of discontinuing marijuana which had been thought to be contributing to cyclic vomiting. Per his report, despite stopping for 6 months , he continued to have vomiting. I have encouraged him to also follow up with any alternative treatment modalities such as acupuncture etc that may help in the management of his chronic condition. DISPOSITION: Home. DIET: Regular. ACTIVITY: As tolerated. FOLLOWUP PLAN: Please follow up to obtain a primary care physician at your convenience. TIME SPENT: Approximately 60 minutes were spent on the discharge of this patient, more than half time spent with the patient at the bedside reviewing the events leading up to this hospitalization, performing the physical examination, and reviewing my plan of care. COURTNEY MARQUES, SUPERVISOR WET ROOM [id number]/[facility] #: [id number] ADDISON
== END 2017-01-17 10:45 | disposition home or self-care (01) | DRG 103 ==
LOC: ED 07:28 → MED 12:26 → OBSVTOIN 01-16 21:09
PROVIDERS: ADMIT Internal Medicine; ATTEND Internal Medicine
DX: G43.A1 Cyclical vomiting, in migraine, intractable (principal); E87.1 Hypo-osmolality and hyponatremia; I10 Essential (primary) hypertension; J45.909 Unspecified asthma, uncomplicated; G43.D0 Abdominal migraine, not intractable; F17.210 Nicotine dependence, cigarettes, uncomplicated; K52.9 Noninfective gastroenteritis and colitis, unspecified; E86.0 Dehydration; R73.03 Prediabetes; B19.20 Unspecified viral hepatitis C without hepatic coma; E83.52 Hypercalcemia; Z28.21 Immunization not carried out because of patient refusal; Z83.3 Family history of diabetes mellitus
CPT/HCPCS: 36415; 74177; 80048; 80053; 80061; 81003; 81015; 82272; 83036; 83630; 83690; 83735; 85025; 87040; 87045; 87046; 87086; 87425; 87449; 87502; 87899; 90686; 99406; A9270-GY; G0378; J0744; J0780; J2270; J2405; Q9967

== ENCOUNTER 2019-05-05 09:43 | Emergency (ER) | payer SELFPAY ==
[2019-05-05] MEDS ORDERED: Ondansetron INJ* 2 MG/ML VIAL IV ONE ×2 (09:56→10:47)
[2019-05-05] MEDS ORDERED: NS 0.9% 1000 ML** 1,000 ML IV ONE ×2 (09:57→10:14)
--- NOTE | 2019-05-05 10:01 | ED ---
Abdominal Pain/Male - HPI Summary HPI Summary: 29 year old M presenting to [facility] with a chief complaint of epigastric abdominal pain and vomiting that began 2 days ago. The patient rates the pain 7/ 10 in severity. Symptoms aggravated by sipping fluids. Symptoms alleviated by nothing. Patient reports nausea. He states he hasn't been able to have a bowel movement. Patient states he last urinated this morning. He denies hematuria. He reports back pain. He states abdominal pain started before the vomiting. He is vomiting yellow emesis - non bloody, non bilious. He reports chills. He denies fever and headache. Patient states that he has had similar symptoms in the past and has been diagnosed with cyclic vomiting and pancreatitis. In the past, he has been given Zofran, Reglan, Ativan, and Benadryl which have helped. He states that alcohol causes pancreatitis flares. Patient states he had 3 shots and 1 beer the day prior to symptoms. His last pancreatitis flare was 6 months ago. He has been hospitalized before for his pancreatitis. Patient does not take medications and states he has hypertension and hepatitis C which he thinks he got from his father. Patient does not have an established primary care provider. Patients medication reviewed this visit. Patient is currently unemployed. - History of Current Complaint Chief Complaint: EDAbdPain Stated Complaint: VOMITING Time Seen by Provider: 05/05/19 09:55 Hx Obtained From: Patient Onset/Duration: Lasting Days - 2, Still Present Timing: Constant Severity Currently: Moderate Pain Intensity: 7 Pain Scale Used: 0-10 Numeric Location: Epigastric Aggravating Factor(s): Other: - sipping fluids Alleviating Factor(s): Nothing Associated Signs And Symptoms: Positive: Negative - hematuria, fever, headache, Other - nausea, back pain, chills, constipation - Allergies/Home Medications Allergies/Adverse Reactions: Allergies Allergy/AdvReac Type Severity Reaction Status Date / Time No Known Allergies Allergy Verified 05/05/19 09:50 PMH/Surg Hx/FS Hx/Imm Hx Previously Healthy: Yes Endocrine/Hematology History: Reports: Hx Diabetes - "borderline" no med Denies: Hx Anticoagulant Therapy Cardiovascular History: Reports: Hx Hypertension Respiratory History: Reports: Hx Asthma GI History: Reports: Hx Gastroesophageal Reflux Disease, Hx Gastrointestinal Bleed, Other GI Disorders - hepatitis C, pancreatitis History: Denies: Hx Renal Disease, Other Problems/Disorders Musculoskeletal History: Reports: Hx Orthopedic Injury - broken right hand- surgery to repair - Surgical History Surgery Procedure, Year, and Place: Repair of right broken wrist/hand - Immunization History Date of Tetanus Vaccine: Unsure Date of Influenza Vaccine: never Infectious Disease History: No Infectious Disease History: Reports: Hx Hepatitis - HEP C from father Denies: Traveled Outside the [place] in Last 30 Days - Family History Known Family History: Positive: Diabetes, Non-Contributory - Social History Occupation: Unemployed Lives: With Family Alcohol Use: Rare Hx Substance Use: Yes Substance Use Type: Reports: Marijuana Hx Tobacco Use: Yes Smoking Status (MU): Current Every Day Smoker Review of Systems Positive: Chills. Negative: Fever Positive: Abdominal Pain, Vomiting, Nausea, Other - constipation Negative: hematuria Positive: Other - back pain Negative: Headache All Other Systems Reviewed And Are Negative: Yes Physical Exam - Summary Physical Exam Summary: Vital Signs Reviewed: Yes A+Ox3, active retching and vomiting - non bilious Eyes: Conjunctiva Clear, PILAR. EOM intact and full ENT: Hearing grossly normal TM x 2 clear, mmoist, uvula midline, no exudate, no erythema Neck: Positive: Supple Respiratory: Positive: No respiratory distress, No accessory muscle use + CTA throughout no w/r Cardiovascular: RRR nl s1, s2 no m/r CBT <2 sec abd soft scattered TTP no guarding, no rebound no distended slight increased pain epigastric Musculoskeletal Exam: LEE x 4 without difficulty Strength Intact, ROM Intact Neurological: Positive: Alert, + sensation throughout Psychological: Positive: Normal Response To examiner Skin: Positive: no rash, no ecchymosis Triage Information Reviewed: Yes Vital Signs On Initial Exam: Initial Vitals Temp Pulse Resp BP Pulse Ox 99.1 F 77 16 156/111 96 05/05/19 09:47 05/05/19 09:47 05/05/19 09:47 05/05/19 09:47 05/05/19 09:47 Vital Signs Reviewed: Yes Completion Of Physical Exam Limited Due To: Level 5 Diagnostics - Vital Signs Vital Signs Temp Pulse Resp BP Pulse Ox 05/05/19 09:47 99.1 F 77 16 156/111 96 - Laboratory Result Diagrams: 05/05/19 10:06 05/05/19 10:06 Lab Statement: Any lab studies that have been ordered have been reviewed, and results considered in the medical decision making process. Re-Evaluation - Re-Evaluation First Eval Re-Evaluation Time: 10:40 Change: Improved - no further emesis - still with nausea - will give second dose zofran VSS improved - BP improved Second Eval Change: Improved - Pt sleeping VSS labs stable - lipase 24 Third Eval Re-Evaluation Time: 11:45 Change: Worse - Patient is vomiting again. He will receive more Reglan. Fourth Eval Re-Evaluation Time: 13:52 Change: Improved - patient feels better and is ready to go home. patient will be discharged took ice chips will give urgent RX pepcid and phenergan [facility] Abdominal Pain Male Course/Dx - Course Course Of Treatment: Patient presents to urgent care with 2 days of retching and vomiting nonbilious nonbloody. Patient with a history of pancreatitis and second vomiting the past. Patient states his last admission was 6 months ago for the same. Patient states he drank alcohol a day prior to symptoms starting. Patient without fevers or chills. Patient states she's got epigastric pain and feels weak. Patient is making urine but no bowel movement. On exam vital signs are stable. Patient actively retching nonbloody nonbilious emesis. Patient with mild diffuse abdominal pain increases epigastric area. We will check labs we'll give IV fluid, Pepcid, Benadryl, and Zofran. We'll closely reassess. Patient comfortable in agreement with plan. BP elevated - recommended / [facility] ermonica related to presentation - Diagnoses Provider Diagnoses: Vomiting Discharge - Sign-Out/Discharge Documenting (check all that apply): Patient Departure - Discharge Patient Received Moderate/Deep Sedation with Procedure: No - Discharge Plan Condition: Stable Disposition: HOME Prescriptions: Famotidine TAB* [Pepcid 20 MG TAB*] 20 mg PO DAILY #1 tab Promethazine TAB* [Phenergan TAB*] 25 mg PO Q8H PRN #15 tab PRN Reason: Vomiting Patient Education Materials: Acute Nausea and Vomiting (ED) Referrals: [facility] [Outside] [facility] [Outside] No Primary Care Phys,NOPCP [Primary Care Provider] - Additional Instructions: - For the first 6 hours, eat and drink clears (water, wiliam shanti, soup broth, jello, popsicles, Gatorade). If you tolerate this okay, add bland foods such as dry toast, scrambled eggs, crackers. Wait until you are feeling better for 24 hours before eating spicy food, acidic food, tomato based food, fried food. - Take medication as prescribed for nausea - take pepcid daily as prescirbed - contact the [facility] or the physician referral center to schedule a follow-up appointment - Billing Disposition and Condition Condition: STABLE Disposition: Home - Attestation Statements Document Initiated by Emerson: Yes Documenting Scribe: Le Watt Provider For Whom Emerson is Documenting (Include Credential): Josie Santiago MD Scribe Attestation: I, Le Watt, scribed for Josie Santiago MD on 05/05/19 at 1526. Scribe Documentation Reviewed: Yes Provider Attestation: The documentation as recorded by the [place] accurately reflects the service I personally performed and the decisions made by me, Josie Santiago MD Status of Scribe Document: Viewed
[2019-05-05] MEDS ORDERED: diPHENhydraMINE IV* 50 MG/ML 1 ml VIAL (BENADRYL) IV ONE (10:15)
[2019-05-05] MEDS ORDERED: Famotidine IV* 10 MG/ML 2 ML (20 mg) IV SLOW PU ONE (10:15)
[2019-05-05 10:19] LABS: ABS Lymphocytes 1.6 10^3/ul (1.0-4.8); ABS Monocytes 0.5 10^3/ul (0-0.8); ABS Neutrophils 9.5 10^3/ul (1.5-7.7); Eosinophil % 0.2 %; Hematocrit 51 % (42-52); Hemoglobin 17.5 g/dL (14.0-18.0); Lymphocyte % 13.8 %; Mean Corpuscular HGB Conc 35 g/dL (31-36); Mean Corpuscular Hemoglobin 30 pg (27-31); Mean Corpuscular Volume 86 fL (80-94); Mean Platelet Volume 7.7 fL (7.4-10.4); Nucleated Red Blood Cells % 0.1; Platelet Count 295 10^3/uL (150-450); Red Blood Count 5.91 10^6 /uL (4.18-5.48); Red Cell Distribution Width 14 % (10-15); White Blood Count 11.7 10^3/uL (3.5-10.8)
[2019-05-05 10:32] LABS: Albumin 4.8 g/dL (3.2-5.2); Albumin/Globulin Ratio 1.4 (1-3); BUN/Creatinine Ratio 22.7 (8-20); Calcium 9.7 mg/dL (8.6-10.3); EGFR Non-African American 121.5 (>60); Globulin 3.5 g/dL (2-4); Magnesium 2.1 mg/dL (1.9-2.7); Potassium 3.4 mmol/L (3.5-5.0); Total Bilirubin 0.7 mg/dL (0.2-1.0); Total Protein 8.3 g/dL (6.4-8.9)
[2019-05-05] MEDS ORDERED: Metoclopramide IV* 5 MG/ML 2 ML VIAL IV ONE (11:47)
[2019-05-05 14:14] LABS: Urine Appearance Cloudy; Urine Bilirubin Negative (Negative); Urine Blood Negative (Negative); Urine Color Yellow; Urine Glucose Negative (Negative); Urine Ketones Negative (Negative); Urine Nitrite Negative (Negative); Urine Protein Negative (Negative); Urine Specific Gravity 1.025 (1.010-1.030); Urine Urobilinogen Negative (Negative)
[2019-05-05 14:21] VITALS: BP 158/92
== END 2019-05-05 14:20 | disposition home or self-care (01) ==
LOC: ED 09:43
DX: R11.10 Vomiting, unspecified (principal); I10 Essential (primary) hypertension; F17.210 Nicotine dependence, cigarettes, uncomplicated
CPT/HCPCS: 36415; 80053; 81003; 82550; 83690; 83735; 85025; 96361; 96374; 96375; 99283; J1200; J2405; J2765

== ENCOUNTER 2019-06-09 00:41 | Emergency (ER) | payer SELFPAY ==
[2019-06-09] MEDS ORDERED: Dicyclomine CAP* 10 MG PO ONE (01:25)
[2019-06-09] MEDS ORDERED: Al Hydrox/Mg Hydrox/Simet LIQ* 30 ML UDC PO ONE (01:25)
[2019-06-09] MEDS ORDERED: Haloperidol INJ IV/IM* 5 MG/ML AMP IM ONE (01:25)
--- NOTE | 2019-06-09 01:29 | ED ---
GI/ HPI - HPI Summary HPI Summary: A 29 y/o male brought in by [facility] ambulance presents to [facility] with a chief complaint of vomiting since 05:00 today. He also reports some diffuse abdominal pain and chest pain. He says that he has had similar symptoms 3-4 months ago and has been diagnosed with gastritis and cyclic vomiting. - History of Current Complaint Chief Complaint: EDAbdPain Time Seen by Provider: 06/09/19 01:20 Stated Complaint: ABD PAIN PER EMS Hx Obtained From: Patient Onset/Duration: Started Hours Ago, Still Present Timing: Constant Severity: Moderate Current Severity: Moderate Pain Intensity: 6 - out of 10 Location of Pain: Diffuse Pain Characteristics: Unable to describe Pain Radiates to: Chest Associated Signs and Symptoms: Positive: Nausea, Abdominal Pain. Negative: Fever - Additional Pertinent History Primary Care Physician: DAYAN - Allergy/Home Medications Allergies/Adverse Reactions: Allergies Allergy/AdvReac Type Severity Reaction Status Date / Time No Known Allergies Allergy Verified 05/05/19 09:50 PMH/Surg Hx/FS Hx/Imm Hx Endocrine/Hematology History: Reports: Hx Diabetes - "borderline" no med Denies: Hx Anticoagulant Therapy Cardiovascular History: Reports: Hx Hypertension Respiratory History: Reports: Hx Asthma GI History: Reports: Hx Gastroesophageal Reflux Disease, Hx Gastrointestinal Bleed, Other GI Disorders - hepatitis C, pancreatitis History: Denies: Hx Renal Disease, Other Problems/Disorders Musculoskeletal History: Reports: Hx Orthopedic Injury - broken right hand- surgery to repair - Surgical History Surgery Procedure, Year, and Place: Repair of right broken wrist/hand - Immunization History Date of Tetanus Vaccine: Unsure Date of Influenza Vaccine: never Immunizations Up to Date: Yes Infectious Disease History: No Infectious Disease History: Reports: Hx Hepatitis - HEP C from father Denies: Traveled Outside the [place] in Last 30 Days - Family History Known Family History: Positive: Diabetes - Social History Alcohol Use: Rare Hx Substance Use: Yes Substance Use Type: Reports: Marijuana Hx Tobacco Use: Yes Smoking Status (MU): Current Every Day Smoker Review of Systems Negative: Fever Positive: Abdominal Pain, Vomiting, Nausea All Other Systems Reviewed And Are Negative: Yes Physical Exam - Summary Physical Exam Summary: Constitutional: Well-developed, Well-nourished, Alert. (-) Distressed Skin: Warm, Dry HENT: Normocephalic; Atraumatic Eyes: Conjunctiva normal Neck: Musculoskeletal ROM normal neck. (-) JVD, (-) Stridor, (-) Tracheal deviation Cardio: Rhythm regular, rate normal, Heart sounds normal; Intact distal pulses; The pedal pulses are 2+ and symmetric. Radial pulses are 2+ and symmetric. (-) Murmur Pulmonary/Chest wall: Effort normal. (-) Respiratory distress, (-) Wheezes, (-) Rales Abd: Soft, (+) diffuse tenderness, (-) Distension, (-) Guarding, (-) Rebound Musculoskeletal: (-) Edema Lymph: (-) Cervical adenopathy Neuro: Alert, Oriented x3 Psych: Mood and affect Normal Triage Information Reviewed: Yes Vital Signs On Initial Exam: Initial Vitals Temp Pulse Resp BP Pulse Ox 98.6 F 97 16 140/95 96 06/09/19 00:44 06/09/19 00:44 06/09/19 00:44 06/09/19 00:44 06/09/19 00:44 Vital Signs Reviewed: Yes Diagnostics - Vital Signs Vital Signs Temp Pulse Resp BP Pulse Ox 06/09/19 00:44 98.6 F 97 16 140/95 96 - Laboratory Result Diagrams: 06/09/19 01:40 06/09/19 01:40 Lab Statement: Any lab studies that have been ordered have been reviewed, and results considered in the medical decision making process. Re-Evaluation - Re-Evaluation First Eval Re-Evaluation Time: 03:32 Change: Unchanged Comment: Minimal epigastric tenderness and chest discomfort. Second Eval Re-Evaluation Time: 04:38 Change: Improved Comment: He is feeling fine now GIGU Course/Dx - Course Course Of Treatment: A 29 y/o male brought in by [employer] ambulance presents to [facility] with a chief complaint of vomiting since 05:00 today. The physical exam revealed diffuse abdominal tenderness. In the ED course the patient was given Bentyl PO, Maalox Plus PO and Haldol IM. Blood work and chemistries obtained and are WNL. The patient will be discharged and follow up with his PCP. He is agreeable with this plan. - Diagnoses Provider Diagnoses: Cyclic vomiting syndrome, Gastritis Discharge - Sign-Out/Discharge Documenting (check all that apply): Patient Departure - DC Patient Received Moderate/Deep Sedation with Procedure: No - Discharge Plan Condition: Stable Disposition: HOME Patient Education Materials: Gastritis (ED), Cyclic Vomiting Syndrome (ED) Print Language: DUTCH Referrals: [facility] [Outside] No Primary Care Phys,NOPCP [Primary Care Provider] - - Billing Disposition and Condition Condition: STABLE Disposition: Home - Attestation Statements Document Initiated by Scribe: Yes Documenting Scribe: Viraj Green Provider For Whom Scribe is Documenting (Include Credential): Dacia Hernández MD Scribe Attestation: IViraj, scribed for Dacia Duckworth MD on 06/09/19 at 0549. Scribe Documentation Reviewed: Yes Provider Attestation: The documentation as recorded by the Viraj haywood accurately reflects the service I personally performed and the decisions made by me, Dacia Duckworth MD Status of Scribe Document: Viewed
[2019-06-09 01:46] LABS: Hematocrit 56 % (42-52); Hemoglobin 18.9 g/dL (14.0-18.0); Mean Corpuscular HGB Conc 34 g/dL (31-36); Mean Corpuscular Hemoglobin 30 pg (27-31); Mean Corpuscular Volume 87 fL (80-94); Platelet Count 356 10^3/uL (150-450); Red Blood Count 6.42 10^6 /uL (4.18-5.48); Red Cell Distribution Width 15 % (10-15); White Blood Count 17.7 10^3/uL (3.5-10.8)
[2019-06-09 02:03] LABS: Albumin 5.9 g/dL (3.2-5.2); Albumin/Globulin Ratio 1.5 (1-3); BUN/Creatinine Ratio 14.2 (8-20); Calcium 11.1 mg/dL (8.6-10.3); EGFR African American 70.9 (>60); EGFR Non-African American 58.6 (>60); Potassium 3.8 mmol/L (3.5-5.0); Total Bilirubin 0.6 mg/dL (0.2-1.0); Total Protein 9.9 g/dL (6.4-8.9)
[2019-06-09 02:39] LABS: ABS Lymphocytes 1.6 10^3/ul (1.0-4.8); ABS Monocytes 1.6 10^3/ul (0-0.8); ABS Neutrophils 14.5 10^3/ul (1.5-7.7)
[2019-06-09] MEDS ORDERED: oxyCODONE/Acetamin 5/325 MG* TAB PO ONE (03:31)
[2019-06-09 04:55] VITALS: BP 142/91
== END 2019-06-09 05:00 | disposition home or self-care (01) ==
LOC: ED 00:41
DX: G43.A0 Cyclical vomiting, in migraine, not intractable (principal); K29.70 Gastritis, unspecified, without bleeding; I10 Essential (primary) hypertension; K21.9 Gastro-esophageal reflux disease without esophagitis; F17.210 Nicotine dependence, cigarettes, uncomplicated
CPT/HCPCS: 36415; 71046; 80053; 83605; 83690; 85025; 96372; 99283; A9270-GY; J1630

== ENCOUNTER 2019-06-10 11:55 | Emergency (ER) | payer SELFPAY ==
[2019-06-10 12:13] VITALS: BP 168/117
== END 2019-06-10 13:14 | disposition left against medical advice (07) ==
LOC: ED 11:55
DX: Z53.21 Procedure and treatment not carried out due to patient leaving prior to being seen by health care provider (principal)
CPT/HCPCS: 99281

== ENCOUNTER 2019-06-11 05:23 | Emergency (ER) | payer SELFPAY ==
[2019-06-11] MEDS ORDERED: Al Hydrox/Mg Hydrox/Simet LIQ* 30 ML UDC PO ONE (06:06)
[2019-06-11] MEDS ORDERED: Lidocaine 2% VISCOUS* 15 ML UDC PO ONE (06:06)
[2019-06-11] MEDS ORDERED: Ondansetron INJ* 2 MG/ML VIAL IV ONE (06:06)
[2019-06-11] MEDS ORDERED: PROCHLORPERAZINE INJ 5 MG/ML 2 ML VIAL IV ONE (06:08)
--- NOTE | 2019-06-11 06:08 | ED ---
Abdominal Pain/Male - HPI Summary HPI Summary: Pt. is a 29 y.o male who presents to the ER for N/V and abd. pain for several days. Pt. has a hx of cyclic vomiting and has been seen in the ER numerous times for similar sxs. Pt. states he is trying to cut back on his THC use. Pt. denies ETOH use or other drug use. No other past medical hx. Pt. does not have a PCP. Sxs are mild in severity. No current modifying factors. Pt. c/o chest pain on initial evaluation which has since subsided. - History of Current Complaint Chief Complaint: EDChestPainROMI Stated Complaint: CHEST PAIN PER EMS Time Seen by Provider: 06/11/19 05:38 Hx Obtained From: Patient Pain Intensity: 8 - Allergies/Home Medications Allergies/Adverse Reactions: Allergies Allergy/AdvReac Type Severity Reaction Status Date / Time No Known Allergies Allergy Verified 06/10/19 12:13 Home Medications: Home Medications Omeprazole CAP (NF) [Prilosec CAP* 20 MG] 20 mg PO DAILY 06/11/19 [History Confirmed 06/11/19] Simethicone [Gas-X] 1 tab PO DAILY PRN 06/11/19 [History Confirmed 06/11/19] PMH/Surg Hx/FS Hx/Imm Hx Previously Healthy: Yes Endocrine/Hematology History: Reports: Hx Diabetes - "borderline" no med Denies: Hx Anticoagulant Therapy Cardiovascular History: Reports: Hx Hypertension Respiratory History: Reports: Hx Asthma GI History: Reports: Hx Gastroesophageal Reflux Disease, Hx Gastrointestinal Bleed, Other GI Disorders - hepatitis C, pancreatitis History: Denies: Hx Renal Disease, Other Problems/Disorders Musculoskeletal History: Reports: Hx Orthopedic Injury - broken right hand- surgery to repair - Surgical History Surgery Procedure, Year, and Place: Repair of right broken wrist/hand - Immunization History Date of Tetanus Vaccine: Unsure Date of Influenza Vaccine: never Infectious Disease History: No Infectious Disease History: Reports: Hx Hepatitis - HEP C from father Denies: Traveled Outside the [place] in Last 30 Days - Family History Known Family History: Positive: Diabetes, Non-Contributory - Social History Occupation: Unemployed Lives: Alone Alcohol Use: None Hx Substance Use: Yes Substance Use Type: Reports: Marijuana Substance Use Comment - Amount & Last Used: occasionally Hx Tobacco Use: Yes Smoking Status (MU): Heavy Every Day Tobacco Smoker Review of Systems Constitutional: Negative Negative: Fever, Chills Positive: Chest Pain. Negative: Palpitations Respiratory: Negative Negative: Shortness Of Breath, Cough Positive: Abdominal Pain, Vomiting, Nausea. Negative: Diarrhea Genitourinary: Negative All Other Systems Reviewed And Are Negative: Yes Physical Exam Triage Information Reviewed: Yes Vital Signs On Initial Exam: Initial Vitals Temp Pulse Resp BP Pulse Ox 98.2 F 77 20 155/11 96 06/11/19 05:25 06/11/19 05:25 06/11/19 05:25 06/11/19 05:25 06/11/19 05:25 Vital Signs Reviewed: Yes Appearance: Positive: Pain Distress - Pt. sitting up in bed, appears uncomfortable but nontoxic. Skin: Positive: Warm, Dry Head/Face: Positive: Normal Head/Face Inspection Eyes: Positive: Normal, EOMI Neck: Positive: Supple Respiratory/Lung Sounds: Positive: Clear to Auscultation, Breath Sounds Present Cardiovascular: Positive: Normal, RRR Abdomen Description: Positive: Other: - Abd. is soft with diffuse tenderness on palpation with guarding. No rebound. Musculoskeletal: Positive: Normal, Strength/ROM Intact Neurological: Positive: Normal, CN Intact II-III Psychiatric: Positive: Anxious Diagnostics - Vital Signs Vital Signs Temp Pulse Resp BP Pulse Ox 06/11/19 05:25 98.2 F 77 20 155/11 96 - Laboratory Result Diagrams: 06/11/19 06:21 06/11/19 06:21 Lab Statement: Any lab studies that have been ordered have been reviewed, and results considered in the medical decision making process. Abdominal Pain Male Course/Dx - Course Course Of Treatment: Pt. presenting with above sxs. Afebrile. BP initially elevated. Will check basic labs and given compazine and GI cocktail. Labs shows mild dehyrdation and elevated WBC and glucose. On re-exam pt. is sleeping comfortably and is feeling better. Tolerating PO fluids. WIll rx protonix. Pt. rx protonix from er yesterday. Advised to start protonix today. Compazine rx. Strongly advised to f.u with the [facility]. To stop smoking THC. Will return to ER if sxs change or worsen. - Diagnoses Differential Diagnosis/HQI/PQRI: Appendicitis, Bowel Obstruction, Gall Bladder Disease, Pancreatitis Provider Diagnoses: Cyclical vomiting Discharge - Sign-Out/Discharge Documenting (check all that apply): Patient Departure Patient Received Moderate/Deep Sedation with Procedure: No - Discharge Plan Condition: Improved Disposition: HOME Prescriptions: Prochlorperazine TAB* [Compazine Tab*] 10 mg PO Q6H PRN #12 tab PRN Reason: Nausea Patient Education Materials: Cyclic Vomiting Syndrome (ED) Referrals: [facility] [Outside] Additional Instructions: Call the [facility] today for an appointment as soon as possible Start the Protonix you were prescribed yesterday Stop smoking marijuana Return to ER if symptoms change or worsen - Billing Disposition and Condition Condition: IMPROVED Disposition: Home
[2019-06-11 06:27] LABS: ABS Lymphocytes 1.7 10^3/ul (1.0-4.8); ABS Monocytes 0.7 10^3/ul (0-0.8); ABS Neutrophils 9.5 10^3/ul (1.5-7.7); Eosinophil % 0.3 %; Hematocrit 53 % (42-52); Hemoglobin 18.5 g/dL (14.0-18.0); Lymphocyte % 14.1 %; Mean Corpuscular HGB Conc 35 g/dL (31-36); Mean Corpuscular Hemoglobin 30 pg (27-31); Mean Corpuscular Volume 86 fL (80-94); Mean Platelet Volume 7.8 fL (7.4-10.4); Platelet Count 314 10^3/uL (150-450); Red Blood Count 6.14 10^6 /uL (4.18-5.48); Red Cell Distribution Width 14 % (10-15)
[2019-06-11 06:46] LABS: Albumin 5.2 g/dL (3.2-5.2); Albumin/Globulin Ratio 1.5 (1-3); BUN/Creatinine Ratio 22.9 (8-20); Calcium 9.9 mg/dL (8.6-10.3); EGFR African American 130.8 (>60); EGFR Non-African American 108.1 (>60); Globulin 3.5 g/dL (2-4); Potassium 3.8 mmol/L (3.5-5.0); Total Bilirubin 0.8 mg/dL (0.2-1.0); Total Protein 8.7 g/dL (6.4-8.9)
[2019-06-11 07:33] VITALS: BP 139/97
== END 2019-06-11 07:31 | disposition home or self-care (01) ==
LOC: ED 05:23
DX: G43.A0 Cyclical vomiting, in migraine, not intractable (principal); E11.9 Type 2 diabetes mellitus without complications; I10 Essential (primary) hypertension; J45.909 Unspecified asthma, uncomplicated; K21.9 Gastro-esophageal reflux disease without esophagitis; F17.210 Nicotine dependence, cigarettes, uncomplicated; Z79.899 Other long term (current) drug therapy
CPT/HCPCS: 36415; 80053; 83690; 85025; 93005; 96374; 96375; 99283; A9270-GY; J0780

== ENCOUNTER 2019-07-21 19:56 | Emergency (ER) | payer SELFPAY ==
[2019-07-21 20:08] VITALS: BP 154/109
[2019-07-21] MEDS ORDERED: NS 0.9% 1000 ML** 1,000 ML IV ONE (20:23)
[2019-07-21] MEDS ORDERED: Metoclopramide IV* 5 MG/ML 2 ML VIAL IV ONE (20:23)
[2019-07-21] MEDS ORDERED: Morphine 4 MG/ML VIAL (1 ml) 4 MG/ML VIAL IV ONE (20:23)
--- NOTE | 2019-07-21 20:23 | ED ---
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 Patient reports vomiting multiple times and fever 100.6F earlier today. Patient denies diarrhea, constipation, dysuria, hematuria, testicular pain. Symptoms aggravated by nothing. Symptoms alleviated by Reglan this morning and later today and GasX. Patient states he hasn't followed up with GI or PCP because he doesn't have either. Patient states he has hx diabetes. Smokes cigarettes, denies alcohol, reports marijuana use once every few weeks. Medications reviewed. Allergies noted. - History of Current Complaint Chief Complaint: EDAbdPain Stated Complaint: VOMITING SINCE YESTERDAY PER EMS Time Seen by Provider: 07/21/19 20:14 Hx Obtained From: Patient Onset/Duration: Lasting Days - 1, Still Present Timing: Constant Severity Currently: Severe Pain Intensity: 10 Pain Scale Used: 0-10 Numeric Location: Diffuse Aggravating Factor(s): Nothing Alleviating Factor(s): Medications Associated Signs And Symptoms: Positive: Negative - diarrhea, constipation, dysuria, hematuria, testicular pain, Fever, Vomiting - Allergies/Home Medications Allergies/Adverse Reactions: Allergies Allergy/AdvReac Type Severity Reaction Status Date / Time No Known Allergies Allergy Verified 06/10/19 12:13 PMH/Surg Hx/FS Hx/Imm Hx Endocrine/Hematology History: Reports: Hx Diabetes - "borderline" no med Denies: Hx Anticoagulant Therapy Cardiovascular History: Reports: Hx Hypertension Respiratory History: Reports: Hx Asthma GI History: Reports: Hx Gastroesophageal Reflux Disease, Hx Gastrointestinal Bleed, Other GI Disorders - hepatitis C, pancreatitis History: Denies: Hx Renal Disease, Other Problems/Disorders Musculoskeletal History: Reports: Hx Orthopedic Injury - broken right hand- surgery to repair - Surgical History Surgery Procedure, Year, and Place: Repair of right broken wrist/hand - Immunization History Date of Tetanus Vaccine: Unsure Date of Influenza Vaccine: never Infectious Disease History: No Infectious Disease History: Reports: Hx Hepatitis - HEP C from father Denies: Traveled Outside the [place] in Last 30 Days - Family History Known Family History: Positive: Diabetes - Social History Alcohol Use: None Hx Substance Use: Yes Substance Use Type: Reports: Marijuana Substance Use Comment - Amount & Last Used: occasionally Hx Tobacco Use: Yes Smoking Status (MU): Heavy Every Day Tobacco Smoker Review of Systems Positive: Fever Gastrointestinal: Negative - constipation Positive: Abdominal Pain, Vomiting. Negative: Diarrhea Negative: dysuria, hematuria, pain - testicular All Other Systems Reviewed And Are Negative: Yes Physical Exam - Summary Physical Exam Summary: Constitutional: Well-developed, Well-nourished, Alert. (-) Distressed Skin: Warm, Dry HENT: Normocephalic; Atraumatic Eyes: Conjunctiva normal Neck: Musculoskeletal ROM normal neck. (-) JVD, (-) Stridor, (-) Tracheal deviation Cardio: Rhythm regular, rate normal, Heart sounds normal; Intact distal pulses; The pedal pulses are 2+ and symmetric. Radial pulses are 2+ and symmetric. (-) Murmur Pulmonary/Chest wall: Effort normal. (-) Respiratory distress, (-) Wheezes, (-) Rales Abd: diffuse tenderness that is worse in suprapubic and RLQ, no rebound/ guarding Musculoskeletal: (-) Edema Lymph: (-) Cervical adenopathy Neuro: Alert, Oriented x3 Psych: Mood and affect Normal Triage Information Reviewed: Yes Vital Signs On Initial Exam: Initial Vitals Temp Pulse Resp BP Pulse Ox 101 F 81 14 154/109 98 07/21/19 20:00 07/21/19 20:00 07/21/19 20:00 07/21/19 20:00 07/21/19 20:00 Vital Signs Reviewed: Yes Diagnostics - Vital Signs Vital Signs Temp Pulse Resp BP Pulse Ox 07/21/19 20:00 101 F 81 14 154/109 98 - Laboratory Result Diagrams: 07/21/19 20:28 07/21/19 20:28 Lab Statement: Any lab studies that have been ordered have been reviewed, and results considered in the medical decision making process. Re-Evaluation - Re-Evaluation First Eval Re-Evaluation Time: 21:25 Change: Improved Comment: patient feels better. he was offered CT scan but declined. will discharge home Abdominal Pain Male Course/Dx - Course Course Of Treatment: Patient is here with vomiting and diffuse abdominal pain. Patient has symptoms like this periodically with no diagnosis etiology. Patient had blood performed which was at his baseline. Patient was given IV fluids, morphine, Reglan with improvement in his symptoms. Patient was offered a CT scan which he declined. Patient was discharged with GI follow-up - Diagnoses Provider Diagnoses: Abdominal pain, Vomiting, Diabetes Discharge ED - Sign-Out/Discharge Documenting (check all that apply): Patient Departure - Discharge Patient Received Moderate/Deep Sedation with Procedure: No - Discharge Plan Condition: Stable Disposition: HOME Patient Education Materials: Abdominal Pain (ED) Referrals: Kristy Barahona MD [Medical Doctor] - 1 Day Care [facility] [Outside] - 1 Day Additional Instructions: Continue your Reglan at home. Please follow up with Dr. Barahona. Please follow up with [facility]. Please make all follow-ups in 1-3 days unless I advise you otherwise. PLEASE RETURN TO EMERGENCY DEPARTMENT FOR ANY NEW OR WORSENING SYMPTOMS such as worsening abdominal pain, vomiting, and fever. - Billing Disposition and Condition Condition: STABLE Disposition: Home - Attestation Statements Document Initiated by Emerson: Yes Documenting Scribe: Le Watt Provider For Whom Emerson is Documenting (Include Credential): Rich Holly MD Scribe Attestation: Le Carr, scribed for Rich Holly MD on 07/22/19 at 0221. Scribe Documentation Reviewed: Yes Provider Attestation: The documentation as recorded by the Le haywood accurately reflects the service I personally performed and the decisions made by Rich torres MD Status of Scribe Document: Viewed
[2019-07-21 20:34] LABS: ABS Lymphocytes 1.9 10^3/ul (1.0-4.8); ABS Monocytes 1.5 10^3/ul (0-0.8); ABS Neutrophils 11.2 10^3/ul (1.5-7.7); Hematocrit 51 % (42-52); Hemoglobin 17.7 g/dL (14.0-18.0); Lymphocyte % 13.2 %; Mean Corpuscular HGB Conc 35 g/dL (31-36); Mean Corpuscular Hemoglobin 30 pg (27-31); Mean Corpuscular Volume 87 fL (80-94); Mean Platelet Volume 7.8 fL (7.4-10.4); Nucleated Red Blood Cells % 0.1; Platelet Count 337 10^3/uL (150-450); Red Blood Count 5.86 10^6 /uL (4.18-5.48); Red Cell Distribution Width 14 % (10-15); White Blood Count 14.6 10^3/uL (3.5-10.8)
[2019-07-21 20:55] LABS: Albumin 5.2 g/dL (3.2-5.2); Albumin/Globulin Ratio 1.5 (1-3); BUN/Creatinine Ratio 15.8 (8-20); Calcium 10.1 mg/dL (8.6-10.3); EGFR African American 104.3 (>60); EGFR Non-African American 86.2 (>60); Globulin 3.5 g/dL (2-4); Potassium 3.3 mmol/L (3.5-5.0); Total Bilirubin 0.6 mg/dL (0.2-1.0); Total Protein 8.7 g/dL (6.4-8.9)
== END 2019-07-21 21:46 | disposition home or self-care (01) ==
LOC: ED 19:56
DX: R10.9 Unspecified abdominal pain (principal); R73.03 Prediabetes; I10 Essential (primary) hypertension; K21.9 Gastro-esophageal reflux disease without esophagitis; F17.210 Nicotine dependence, cigarettes, uncomplicated; R50.9 Fever, unspecified; R11.10 Vomiting, unspecified
CPT/HCPCS: 36415; 80053; 83690; 85025; 96374; 96375; 99282; J2270; J2765

== ENCOUNTER 2019-07-21 21:59 | Emergency (ER) | payer SELFPAY ==
[2019-07-22] MEDS ORDERED: Haloperidol INJ IV/IM* 5 MG/ML AMP IV SLOW PU ONE (00:15)
[2019-07-22] MEDS ORDERED: diPHENhydraMINE PO* 25 MG PO ONE (00:16)
--- NOTE | 2019-07-22 00:18 | ED ---
Abdominal Pain/Male - HPI Summary HPI Summary: 29 year old M presenting to [facility] complains of abdominal pain rated 8/10 in severity with associated nausea and vomiting since minutes ago. Patient states there was blood in his vomit. Symptoms aggravated by nothing. Symptoms alleviated by nothing. Patient was seen in the ED minutes ago for same symptoms , and discharged home with instructions to continue taking his Reglan at home, and to follow up with Dr. Barahona, GI, and [facility]. Patient states that immediately after discharge, his abdominal pain, nausea, and vomiting came back. Medications reviewed. Allergies noted. - History of Current Complaint Chief Complaint: EDAbdPain Stated Complaint: VOMITING/ABD PAIN PER PT Time Seen by Provider: 07/22/19 00:07 Hx Obtained From: Patient Onset/Duration: Lasting Minutes, Still Present Timing: Constant Severity Currently: Severe Pain Intensity: 8 Pain Scale Used: 0-10 Numeric Aggravating Factor(s): Nothing Alleviating Factor(s): Nothing Associated Signs And Symptoms: Positive: Nausea, Vomiting - Allergies/Home Medications Allergies/Adverse Reactions: Allergies Allergy/AdvReac Type Severity Reaction Status Date / Time No Known Allergies Allergy Verified 06/10/19 12:13 PMH/Surg Hx/FS Hx/Imm Hx Endocrine/Hematology History: Reports: Hx Diabetes - "borderline" no med Denies: Hx Anticoagulant Therapy Cardiovascular History: Reports: Hx Hypertension Respiratory History: Reports: Hx Asthma GI History: Reports: Hx Gastroesophageal Reflux Disease, Hx Gastrointestinal Bleed, Other GI Disorders - hepatitis C, pancreatitis History: Denies: Hx Renal Disease, Other Problems/Disorders Musculoskeletal History: Reports: Hx Orthopedic Injury - broken right hand- surgery to repair - Surgical History Surgery Procedure, Year, and Place: Repair of right broken wrist/hand - Immunization History Date of Tetanus Vaccine: Unsure Date of Influenza Vaccine: never Infectious Disease History: No Infectious Disease History: Reports: Hx Hepatitis - HEP C from father Denies: Traveled Outside the [place] in Last 30 Days - Family History Known Family History: Positive: Diabetes, Non-Contributory - Social History Alcohol Use: None Hx Substance Use: Yes Substance Use Type: Reports: Marijuana Substance Use Comment - Amount & Last Used: occasionally Hx Tobacco Use: Yes Smoking Status (MU): Heavy Every Day Tobacco Smoker Review of Systems Negative: Fever Positive: Abdominal Pain, Vomiting, Nausea All Other Systems Reviewed And Are Negative: Yes Physical Exam - Summary Physical Exam Summary: Constitutional: Well-developed, Well-nourished, Alert. (-) Distressed Skin: Warm, Dry HENT: Normocephalic; Atraumatic Eyes: Conjunctiva normal Neck: Musculoskeletal ROM normal neck. (-) JVD, (-) Stridor, (-) Tracheal deviation Cardio: Rhythm regular, rate normal, Heart sounds normal; Intact distal pulses; The pedal pulses are 2+ and symmetric. Radial pulses are 2+ and symmetric. (-) Murmur Pulmonary/Chest wall: Effort normal. (-) Respiratory distress, (-) Wheezes, (-) Rales Abd: Left-sided tenderness, worse in LUQ. Mild RLQ tend Musculoskeletal: (-) Edema Lymph: (-) Cervical adenopathy Neuro: Alert, Oriented x3 Psych: Mood and affect Normal Triage Information Reviewed: Yes Vital Signs On Initial Exam: Initial Vitals Temp Pulse Resp BP Pulse Ox 101.4 F 85 20 164/102 96 07/21/19 22:03 07/21/19 22:03 07/21/19 22:03 07/21/19 22:03 07/21/19 22:03 Vital Signs Reviewed: Yes Diagnostics - Vital Signs Vital Signs Temp Pulse Resp BP Pulse Ox 07/21/19 22:03 101.4 F 85 20 164/102 96 - Laboratory Lab Statement: Any lab studies that have been ordered have been reviewed, and results considered in the medical decision making process. - CT CT Abd/Pel CT Interpretation Completed By: Radiologist Summary of CT Findings: Negative CT abdomen/pelvis. No renal or ureteral calculi are evident and there is no evidence of obstructive uropathy. A normal appendix is seen. ED physician has reviewed this report. Abdominal Pain Male Course/Dx - Course Course Of Treatment: Patient was discharged from the ED and then immediately vomited. Patient rechecked and to get evaluated. Patient thought there was blood in his vomit but grossly did not have blood in his vomit. Patient had a CT scan showed no abnormality. Patient was given Haldol and Benadryl for possible cyclic vomiting syndrome. Patient had no episodes of vomiting after being seen here again. Patient was discharged with GI follow-up. - Diagnoses Provider Diagnoses: Abdominal pain, Vomiting Discharge ED - Sign-Out/Discharge Documenting (check all that apply): Patient Departure - Discharge Patient Received Moderate/Deep Sedation with Procedure: No - Discharge Plan Condition: Stable Disposition: HOME Patient Education Materials: Abdominal Pain (ED) Referrals: Kristy Barahona MD [Medical Doctor] - 1 Day Care [facility] [Outside] - 1 Day Additional Instructions: Please follow up with Dr. Barahona and [facility]. Please make all follow-ups in 1-3 days unless I advise you otherwise. PLEASE RETURN TO EMERGENCY DEPARTMENT FOR ANY NEW OR WORSENING SYMPTOMS. - Billing Disposition and Condition Condition: STABLE Disposition: Home - Attestation Statements Document Initiated by Scribe: Yes Documenting Scribe: Le Watt Provider For Whom Scribe is Documenting (Include Credential): Rich Holly MD Scribe Attestation: Le Carr, scribed for Rich Holly MD on 07/22/19 at 0306. Scribe Documentation Reviewed: Yes Provider Attestation: The documentation as recorded by the Le haywood accurately reflects the service I personally performed and the decisions made by Rich torres MD Status of Scribe Document: Viewed
[2019-07-22] MEDS ORDERED: Iohexol 300* (CONTRAST) 10 ML SDV IV ONE (02:01)
[2019-07-22 03:00] VITALS: BP 102/53
== END 2019-07-22 02:59 | disposition home or self-care (01) ==
LOC: ED 21:59
DX: R10.9 Unspecified abdominal pain (principal); R11.10 Vomiting, unspecified; I10 Essential (primary) hypertension; J45.909 Unspecified asthma, uncomplicated; K21.9 Gastro-esophageal reflux disease without esophagitis; F17.200 Nicotine dependence, unspecified, uncomplicated; Z79.899 Other long term (current) drug therapy
CPT/HCPCS: 74177; 82271; 96374; 99283; A9270-GY; J1630; Q9967

== ENCOUNTER 2019-08-21 20:36 | Emergency (ER) | payer SELFPAY ==
[2019-08-21] MEDS ORDERED: Pantoprazole IV* 40 MG IV ONE (21:20)
[2019-08-21] MEDS ORDERED: Ondansetron INJ* 2 MG/ML VIAL IV ONE (21:21)
[2019-08-21] MEDS ORDERED: Ketorolac INJ* 30 MG/ML 1 ML VIAL IV PUSH ONE (21:21)
[2019-08-21] MEDS ORDERED: NS 0.9% 1000 ML** 2,000 ML IV ONE (21:21)
[2019-08-21 21:46] LABS: ABS Lymphocytes 1.3 10^3/ul (1.0-4.8); ABS Monocytes 1.2 10^3/ul (0-0.8); ABS Neutrophils 15.6 10^3/ul (1.5-7.7); Hematocrit 54 % (42-52); Hemoglobin 18.6 g/dL (14.0-18.0); Lymphocyte % 7.3 %; Mean Corpuscular HGB Conc 35 g/dL (31-36); Mean Corpuscular Hemoglobin 31 pg (27-31); Mean Corpuscular Volume 88 fL (80-94); Nucleated Red Blood Cells % 0.1; Platelet Count 301 10^3/uL (150-450); Red Cell Distribution Width 14 % (10-15); White Blood Count 18.2 10^3/uL (3.5-10.8)
--- NOTE | 2019-08-21 21:59 | ED ---
GI/ HPI - HPI Summary HPI Summary: 29-year-old male presents with vomiting today. He states he has been consistently vomiting. He states that he started developing left-sided shoulder and abdominal pain today. He admits to some chest pain. He states he has not smoked marijuana in a while. does have history of cyclic vomiting. Denies any diarrhea. No urinary symptoms. No shortness of breath. No recent illness. Did not try anything for his symptoms. Has history hep C. Is currently on omeprazole. - History of Current Complaint Chief Complaint: EDNauseaVomitDiarrh Time Seen by Provider: 08/21/19 21:14 Stated Complaint: VOMITING/PAIN ON LEFT SIDE PER PT Pain Intensity: 9 - Additional Pertinent History Primary Care Physician: DAYAN - Allergy/Home Medications Allergies/Adverse Reactions: Allergies Allergy/AdvReac Type Severity Reaction Status Date / Time No Known Allergies Allergy Verified 06/10/19 12:13 PMH/Surg Hx/FS Hx/Imm Hx Endocrine/Hematology History: Reports: Hx Diabetes - "borderline" no med Denies: Hx Anticoagulant Therapy Cardiovascular History: Reports: Hx Hypertension Respiratory History: Reports: Hx Asthma GI History: Reports: Hx Gastroesophageal Reflux Disease, Hx Gastrointestinal Bleed, Other GI Disorders - hepatitis C, pancreatitis History: Denies: Hx Renal Disease, Other Problems/Disorders Musculoskeletal History: Reports: Hx Orthopedic Injury - broken right hand- surgery to repair - Surgical History Surgery Procedure, Year, and Place: Repair of right broken wrist/hand - Immunization History Date of Tetanus Vaccine: Unsure Date of Influenza Vaccine: never Infectious Disease History: No Infectious Disease History: Reports: Hx Hepatitis - HEP C from father Denies: Traveled Outside the [place] in Last 30 Days - Family History Known Family History: Positive: Diabetes, Non-Contributory - Social History Alcohol Use: None Hx Substance Use: Yes Substance Use Type: Reports: Marijuana Substance Use Comment - Amount & Last Used: occasionally Hx Tobacco Use: Yes Smoking Status (MU): Heavy Every Day Tobacco Smoker Review of Systems Positive: Fever - low grade Positive: Chest Pain Negative: Shortness Of Breath Positive: Abdominal Pain, Vomiting, Nausea. Negative: Diarrhea All Other Systems Reviewed And Are Negative: Yes Physical Exam Triage Information Reviewed: Yes Vital Signs On Initial Exam: Initial Vitals Temp Pulse Resp BP Pulse Ox 100.2 F 90 20 171/115 98 08/21/19 20:43 08/21/19 20:43 08/21/19 20:43 08/21/19 20:43 08/21/19 20:43 Vital Signs Reviewed: Yes Appearance: Positive: Well-Appearing Skin: Positive: Warm, Dry Head/Face: Positive: Normal Head/Face Inspection Eyes: Positive: Normal, Conjunctiva Clear ENT: Positive: Pharynx normal Respiratory/Lung Sounds: Positive: Clear to Auscultation, Breath Sounds Present Cardiovascular: Positive: Normal, RRR Abdomen Description: Positive: Soft, Other: - tenderness LUQ Bowel Sounds: Positive: Present Musculoskeletal: Positive: Normal Neurological: Positive: Normal Psychiatric: Positive: Normal Procedures - Sedation Patient Received Moderate/Deep Sedation with Procedure: No Diagnostics - Vital Signs Vital Signs Temp Pulse Resp BP Pulse Ox 08/21/19 20:43 100.2 F 90 20 171/115 98 - Laboratory Lab Results: Lab Results 08/21/19 Range/Units 21:38 WBC 18.2 H (3.5-10.8) 10^3/uL RBC 6.10 H (4.18-5.48) 10^6 /uL Hgb 18.6 H (14.0-18.0) g/dL Hct 54 H (42-52) % MCV 88 (80-94) fL MCH 31 (27-31) pg MCHC 35 (31-36) g/dL RDW 14 (10-15) % Plt Count 301 (150-450) 10^3/uL MPV 8.0 (7.4-10.4) fL Neut % (Auto) 85.9 % Lymph % (Auto) 7.3 % Addison % (Auto) 6.6 % Eos % (Auto) 0.0 % Baso % (Auto) 0.2 % Absolute Neuts (auto) 15.6 H (1.5-7.7) 10^3/ul Absolute Lymphs (auto) 1.3 (1.0-4.8) 10^3/ul Absolute Monos (auto) 1.2 H (0-0.8) 10^3/ul Absolute Eos (auto) 0.0 (0-0.6) 10^3/ul Absolute Basos (auto) 0.0 (0-0.2) 10^3/ul Absolute Nucleated RBC 0.0 10^3/ul Nucleated RBC % 0.1 Result Diagrams: 08/21/19 21:38 08/21/19 21:38 Lab Statement: Any lab studies that have been ordered have been reviewed, and results considered in the medical decision making process. - EKG No standard instances Cardiac Rate: NL EKG Rhythm: Sinus Rhythm EKG Comparison: No Significant Change Summary of EKG Findings: sinus rhythm Re-Evaluation - Re-Evaluation First Eval Re-Evaluation Time: 22:53 Change: Improved Comment: still feels nausous Second Eval Re-Evaluation Time: 23:44 Change: Improved Comment: feeling better, no chest pain, feels like can go home GIGU Course/Dx - Course Course Of Treatment: 29-year-old male presents with vomiting today. He states he has been consistently vomiting. He states that he started developing left- sided shoulder and abdominal pain today. He admits to some chest pain. He states he has not smoked marijuana in a while. does have history of cyclic vomiting. Denies any diarrhea. No urinary symptoms. No shortness of breath. No recent illness. Did not try anything for his symptoms. Has history hep C. Is currently on omeprazole. On exam tenderness left upper quadrant. Lungs to auscultation. EKG shows sinus rhythm. wbc elevated at 18 this is consistent with previous records does does have history of leukocytosis. LFTs normal. Amylase and lipase normal. Fluids protonic and Zofran and feeling a bit better. gave compazine and benadryl and GI cocktails and feels better and ready to go home. will discharge with reglan as patient states sometimes this works at home. told stop smoking pot. patient understand and agrees with plan. - Diagnoses Differential Diagnoses - Male: Esophagitis/Gastritis, Gastroenteritis (Viral), Vomiting Provider Diagnoses: Vomiting, Epigastric pain Discharge ED - Sign-Out/Discharge Documenting (check all that apply): Patient Departure - Discharge Plan Condition: Good Disposition: HOME Prescriptions: Metoclopramide TAB* [Reglan TAB*] 10 mg PO Q6H PRN #20 tab PRN Reason: Vomiting Patient Education Materials: Acute Nausea and Vomiting (ED) Referrals: No Primary Care Phys,NOPCP [Primary Care Provider] - Additional Instructions: Can take reglan every 6 hours as needed for nausea Drink small amounts of fluid as tolerated When able to eat follow BRAT diet: Bananas, rice, applesauce, toast Take Tylenol for pain as needed every 6 hours Follow up with primary within 5 days Return to ED if develop any new or worsening symptoms - Billing Disposition and Condition Condition: GOOD Disposition: Home
[2019-08-21 22:05] LABS: Albumin 5.4 g/dL (3.2-5.2); Albumin/Globulin Ratio 1.4 (1-3); BUN/Creatinine Ratio 17.3 (8-20); C Reactive Protein 3.07 mg/L (<8.01); Calcium 10.6 mg/dL (8.6-10.3); EGFR African American 107.9 (>60); EGFR Non-African American 89.2 (>60); Globulin 3.9 g/dL (2-4); Magnesium 2.3 mg/dL (1.9-2.7); Potassium 3.8 mmol/L (3.5-5.0); Total Bilirubin 0.4 mg/dL (0.2-1.0); Total Protein 9.3 g/dL (6.4-8.9)
[2019-08-21 22:07] LABS: Troponin I 0.01 ng/mL (<0.04)
[2019-08-21] MEDS ORDERED: PROCHLORPERAZINE INJ 5 MG/ML 2 ML VIAL IV ONE (22:41)
[2019-08-21] MEDS ORDERED: diPHENhydraMINE IV* 50 MG/ML 1 ml VIAL (BENADRYL) IV ONE (22:41)
[2019-08-21] MEDS ORDERED: Al Hydrox/Mg Hydrox/Simet LIQ* 30 ML UDC PO ONE (22:45)
[2019-08-21] MEDS ORDERED: Lidocaine 2% VISCOUS* 15 ML UDC PO ONE (22:45)
[2019-08-21] MEDS ORDERED: O ndansetron ODT 4MG 5TAB PRPK 4 MG PAK PO ONE (23:43)
[2019-08-22 00:01] VITALS: BP 118/74
== END 2019-08-21 23:45 | disposition home or self-care (01) ==
LOC: ED 20:36
DX: R11.10 Vomiting, unspecified (principal); R10.13 Epigastric pain; M25.512 Pain in left shoulder; R73.03 Prediabetes; I10 Essential (primary) hypertension; K21.9 Gastro-esophageal reflux disease without esophagitis; F17.200 Nicotine dependence, unspecified, uncomplicated
CPT/HCPCS: 36415; 80053; 82150; 83605; 83690; 83735; 84484; 85025; 86140; 93005; 96361; 96374; 96375; 96376; 99282; A9270-GY; J0780; J1200; J1885; J2405

== ENCOUNTER 2019-09-05 19:42 | Emergency (ER) | payer SELFPAY ==
[2019-09-05] MEDS ORDERED: Lidocaine 1% MPF ** 5 ML VIAL INJ ONE (20:29)
[2019-09-05] MEDS ORDERED: Lidocaine 1% INJ* 10 MG/ML 30 ML SDV ONE (20:31)
--- NOTE | 2019-09-05 20:36 | ED ---
Skin Complaint - HPI Summary HPI Summary: Pt is a 29 y/o M presenting to the ED with a chief complaint of a pilonidal cyst first noticed about 4 days ago. He denies fever, chills, nausea, and vomiting. Medications reviewed. Allergies noted. - History of Current Complaint Chief Complaint: EDRashSkinAbscess Time Seen by Provider: 09/05/19 20:23 Stated Complaint: BACK PAIN PER PT Hx Obtained From: Patient Onset/Duration: Started Days Ago, Still Present Skin Exposure Onset/Duration: Days Ago Timing: Constant, Lasting Days Onset Severity: Moderate Current Severity: Severe Pain Intensity: 9 Pain Scale Used: 0-10 Numeric Skin Location: Other: - tailbone Character: Pain, Redness Aggravating Symptom(s): Touch Alleviating Symptom(s): Nothing Associated Signs & Symptoms: Negative - Additional Pertinent History Primary Care Physician: [id number] - Allergy/Home Medications Allergies/Adverse Reactions: Allergies Allergy/AdvReac Type Severity Reaction Status Date / Time No Known Allergies Allergy Verified 06/10/19 12:13 PMH/Surg Hx/FS Hx/Imm Hx Previously Healthy: Yes Endocrine/Hematology History: Reports: Hx Diabetes - "borderline" no med Denies: Hx Anticoagulant Therapy Cardiovascular History: Reports: Hx Hypertension Respiratory History: Reports: Hx Asthma GI History: Reports: Hx Gastroesophageal Reflux Disease, Hx Gastrointestinal Bleed, Other GI Disorders - hepatitis C, pancreatitis History: Denies: Hx Renal Disease, Other Problems/Disorders Musculoskeletal History: Reports: Hx Orthopedic Injury - broken right hand- surgery to repair - Surgical History Surgery Procedure, Year, and Place: Repair of right broken wrist/hand - Immunization History Date of Tetanus Vaccine: Unsure Date of Influenza Vaccine: never Infectious Disease History: Yes Infectious Disease History: Reports: Hx Hepatitis - HEP C from father Denies: Traveled Outside the [place] in Last 30 Days - Family History Known Family History: Positive: Diabetes - Social History Alcohol Use: None Hx Substance Use: Yes Substance Use Type: Reports: Marijuana Substance Use Comment - Amount & Last Used: occasionally Hx Tobacco Use: Yes Smoking Status (MU): Heavy Every Day Tobacco Smoker Review of Systems Negative: Fever, Chills Negative: Vomiting, Nausea Positive: Other - cyst on tailbone All Other Systems Reviewed And Are Negative: Yes Physical Exam - Summary Physical Exam Summary: Constitutional: Well-developed, Well-nourished, Alert. (-) Distressed Skin: Warm, Dry. 4cm x 4cm fluctuance and induration just superior to gluteal cleft. HENT: Normocephalic; Atraumatic Eyes: Conjunctiva normal Neck: Musculoskeletal ROM normal neck. (-) JVD, (-) Stridor, (-) Tracheal deviation Cardio: Rhythm regular, rate normal, Heart sounds normal; Intact distal pulses; Radial pulses are 2+ and symmetric. (-) Murmur Pulmonary/Chest wall: Effort normal. (-) Respiratory distress, (-) Wheezes, (-) Rales Abd: Soft, (-) tenderness, (-) Distension, (-) Guarding, (-) Rebound Musculoskeletal: (-) Edema Lymph: (-) Cervical adenopathy Neuro: Alert, Oriented x3 Psych: Mood and affect Normal Triage Information Reviewed: Yes Vital Signs On Initial Exam: Initial Vitals Temp Pulse Resp BP Pulse Ox 98.7 F 93 15 140/87 99 09/05/19 19:44 09/05/19 19:44 09/05/19 19:44 09/05/19 19:44 09/05/19 19:44 Vital Signs Reviewed: Yes Procedures - Sedation Patient Received Moderate/Deep Sedation with Procedure: No - Incision and Drainage Upper Gluteal Fold Site: 4cm x 4cm fluctuance and induration just superior to gluteal cleft Anesthesia: Local, Lidocaine - 10cc's Instrument(s): Other - #11 blade Packing: Gauze Diagnostics - Vital Signs Vital Signs Temp Pulse Resp BP Pulse Ox 09/05/19 19:44 98.7 F 93 15 140/87 99 - Laboratory Lab Statement: Any lab studies that have been ordered have been reviewed, and results considered in the medical decision making process. Course/Dx - Course Course Of Treatment: Patient is here with a pilonidal cyst. Patient has no evidence of surrounding cellulitis. Patient had successful drainage and packing of his pilonidal cyst. - Diagnoses Provider Diagnoses: Pilonidal cyst Discharge ED - Sign-Out/Discharge Documenting (check all that apply): Patient Departure - Discharge Plan Condition: Stable Disposition: HOME Patient Education Materials: Pilonidal Cyst (ED) Referrals: [facility] [Outside] Additional Instructions: Please return in 48 hours to get your packing removed if you are uncomfortable doing it by yourself at home, or if you're concerned that it's getting worse. Make sure to keep the area clean, and wipe away from the wound after going to the bathroom. - Billing Disposition and Condition Condition: STABLE Disposition: Home - Attestation Statements Document Initiated by Emerson: Yes Documenting Scribe: Donita Amanda Provider For Whom Emerson is Documenting (Include Credential): Rich Holly MD. Scribe Attestation: IDonita, scribed for Rich Holly MD. on 09/05/19 at 2220. Scribe Documentation Reviewed: Yes Provider Attestation: The documentation as recorded by the Donita haywood accurately reflects the service I personally performed and the decisions made by , Rich Holly MD. Status of Scribe Document: Viewed
[2019-09-05 21:10] VITALS: BP 119/79
== END 2019-09-05 21:08 | disposition home or self-care (01) ==
LOC: ED 19:42
DX: L05.91 Pilonidal cyst without abscess (principal); I10 Essential (primary) hypertension; J45.909 Unspecified asthma, uncomplicated; K21.9 Gastro-esophageal reflux disease without esophagitis; F17.200 Nicotine dependence, unspecified, uncomplicated
CPT/HCPCS: 10060; 10080; 99282

== ENCOUNTER 2019-10-14 17:07 | Emergency (ER) | payer SELFPAY ==
[2019-10-14] MEDS ORDERED: NS 0.9% 1000 ML** 1,000 ML IV ONE ×2 (19:13→20:17)
[2019-10-14] MEDS ORDERED: Ondansetron INJ* 2 MG/ML VIAL IV ONE (19:13)
[2019-10-14] MEDS ORDERED: Pantoprazole IV* 40 MG IV ONE (19:17)
--- NOTE | 2019-10-14 19:44 | ED ---
Abdominal Pain/Male - HPI Summary HPI Summary: This pt is a 29 Y/O M presenting to [facility] with a CC of abdominal pain that is rated a 5/10 in severity and N/V that started this morning when he woke up. He states that the symptoms started yesterday with a stuffy nose and a potential fever before he went to bed. He states that he has been unable to eat today without vomiting and states that he hasnt taken his prescribed medications in 2 days. He also states that he has a sore throat. He states that his son was sick with a sore throat and the flu earlier this month. He has no alleviating factors and states that food makes his stomach worse. He has a PMHx of Hep C but states that he does not take anything for it. He states that he has a FHx of HTN and DM. - History of Current Complaint Chief Complaint: EDFluSymptoms Stated Complaint: FLU-LIKE SYMPTOMS PER PT Time Seen by Provider: 10/14/19 19:13 Hx Obtained From: Patient Onset/Duration: Sudden Onset, Still Present, Worse Since - this morning Timing: Constant Severity Initially: Mild Severity Currently: Moderate Pain Intensity: 5 Pain Scale Used: 0-10 Numeric Location: Diffuse Radiates: No Aggravating Factor(s): Food Alleviating Factor(s): Nothing Associated Signs And Symptoms: Positive: Fever, Nausea, Vomiting, Other - recent illness in the family with a flu and sore throat, Pt states sore throat, nasal congestion - Allergies/Home Medications Allergies/Adverse Reactions: Allergies Allergy/AdvReac Type Severity Reaction Status Date / Time No Known Allergies Allergy Verified 10/14/19 17:45 PMH/Surg Hx/FS Hx/Imm Hx Previously Healthy: Yes Endocrine/Hematology History: Reports: Hx Diabetes - "borderline" no med Denies: Hx Anticoagulant Therapy Cardiovascular History: Reports: Hx Hypertension Respiratory History: Reports: Hx Asthma GI History: Reports: Hx Gastroesophageal Reflux Disease, Hx Gastrointestinal Bleed, Other GI Disorders - hepatitis C, pancreatitis History: Denies: Hx Renal Disease, Other Problems/Disorders Musculoskeletal History: Reports: Hx Orthopedic Injury - broken right hand- surgery to repair - Cancer History Hx Chemotherapy: No Hx Radiation Therapy: No - Surgical History Surgical History: Yes Surgery Procedure, Year, and Place: Repair of right broken wrist/hand - Immunization History Date of Tetanus Vaccine: Unsure Immunizations Up to Date: Yes Infectious Disease History: No Infectious Disease History: Reports: Hx Hepatitis - HEP C from father Denies: Traveled Outside the [place] in Last 30 Days - Family History Known Family History: Positive: Hypertension, Diabetes - Social History Occupation: Employed Full-time Lives: With Family Alcohol Use: None Hx Substance Use: Yes Substance Use Type: Reports: Marijuana Substance Use Comment - Amount & Last Used: occasionally Hx Tobacco Use: Yes Smoking Status (MU): Heavy Every Day Tobacco Smoker Review of Systems - ROS Summary Review of Systems Summary: Home Medications Medication Instructions Recorded Confirmed Type Omeprazole CAP (NF) [Prilosec CAP* 20 mg PO DAILY 06/11/19 08/21/19 History 20 MG] Simethicone [Gas-X] 1 tab PO DAILY PRN 06/11/19 08/21/19 History Dicyclomine CAP* [Bentyl CAP*] 10 mg PO TID PRN #20 cap 06/27/19 08/21/19 Rx Metoclopramide TAB* [Reglan TAB*] 10 mg PO Q8H PRN #20 tab 06/27/19 08/21/19 Rx Metoclopramide TAB* [Reglan TAB*] 10 mg PO Q6H PRN #20 tab 08/21/19 Rx Positive: Fever Positive: Sore Throat, Other - nasal congestion Positive: Abdominal Pain, Vomiting, Nausea All Other Systems Reviewed And Are Negative: Yes Physical Exam - Summary Physical Exam Summary: General: Well-developed, Well-nourished male who is Mildly ill appearing HEENT: Normocephalic, Atraumatic. Eyes: Conjuctiva normal, PERRL. Oropharynx: Clear, Dry mucus membranes, (-) exudates. Neck: Soft, FROM, (-) lymphadenopathy, (-) thyromegaly, (-) JVD. Cardiovascular: Normal sinus rhythm, (-) murmur. Lungs: Clear to auscultation bilaterally (-) wheezes, (-) rales, (-) rhonchi. Abdomen: Soft, Diffuse mild abdominal tenderness, non-distended, (-) organomegaly, normal bowel sounds. Back: (-) CVA tenderness Extremities: No edema. Skin: Warm, dry, (-) rash. Neuro: Alert and oriented x3, no focal deficits. Psychiatric: Mood normal, affect normal. Triage Information Reviewed: Yes Vital Signs On Initial Exam: Initial Vitals Temp Pulse Resp BP Pulse Ox 101.3 F 100 16 155/112 96 10/14/19 17:30 10/14/19 17:30 10/14/19 17:30 10/14/19 17:30 10/14/19 17:30 Vital Signs Reviewed: Yes Procedures - Sedation Patient Received Moderate/Deep Sedation with Procedure: No Diagnostics - Vital Signs Vital Signs Temp Pulse Resp BP Pulse Ox 10/14/19 17:30 101.3 F 100 16 155/112 96 - Laboratory Result Diagrams: 10/14/19 19:30 10/14/19 19:30 Lab Statement: Any lab studies that have been ordered have been reviewed, and results considered in the medical decision making process. - EKG 1711 Cardiac Rate: NL - 84 BPM EKG Rhythm: Sinus Rhythm ST Segment: Normal Ectopy: None Summary of EKG Findings: EKG at 1711 reveals normal sinus rhythm with rate of 84 BPM, no acute changes, no ischemic changes. This EKG was reviewed and interpreted by Dr. Blair at 1715, 10/14/19 and reinterpreted at 2233 10/14/[address] Ruggiero. Re-Evaluation - Re-Evaluation First Eval Re-Evaluation Time: 22:29 Change: Improved Comment: I have discussed results with the patient and his vomiting is resolved. Discussed symptoms that warrant immediate return to ED. He has requested to be discharged without the 2nd lactic acid test. He states that he is tollerating his symptoms better and wishes to be discharged home. Abdominal Pain Male Course/Dx - Course Course Of Treatment: 29-year-old male presents with abdominal pain and vomiting. Patient given Zofran, protonix, reglan, IV fluids. Workup demonstrated elevated white count. Elevated lactic acid. Despite wanting to continue hydrating and recheck lactic. Patient started tolerating by mouth and wanted to be discharged home. Advised plenty of clear fluids. Follow-up with PCP. Follow-up sooner for any worsening symptoms. - Diagnoses Provider Diagnoses: Vomiting Discharge ED - Sign-Out/Discharge Documenting (check all that apply): Patient Departure - discharge - Discharge Plan Condition: Stable Disposition: HOME Patient Education Materials: Acute Nausea and Vomiting (ED), Abdominal Pain (ED ) Referrals: [facility] [Outside] - 2 Days Additional Instructions: PLEASE FOLLOW UP WITH [facility] TO BE RECOMMENDED A PRIMARY CARE PHYSICIAN IN THE NEXT 1-3 DAYS. PLEASE RETURN TO THE EMERGENCY DEPARTMENT FOR ANY NEW OR WORSENING SYMPTOMS. If you have a primary care physician already, please start taking your medications again with a new script. If you do not have a primary care physician, please use the [facility] to obtain a primary care physician to help with your medications. - Billing Disposition and Condition Condition: STABLE Disposition: Home - Attestation Statements Document Initiated by Emerson: Yes Documenting Scribe: Bon Harris Provider For Whom Emerson is Documenting (Include Credential): Mary Ruggiero MD Scribe Attestation: Bon Carr, scribed for Mary Ruggiero MD on 10/15/19 at 0141. Scribe Documentation Reviewed: Yes Provider Attestation: The documentation as recorded by the Bon haywood accurately reflects the service I personally performed and the decisions made by me, Mary Ruggiero MD Status of Scribe Document: Viewed
[2019-10-14 19:55] LABS: Albumin 5.7 g/dL (3.2-5.2); Albumin/Globulin Ratio 1.4 (1-3); BUN/Creatinine Ratio 13.7 (8-20); EGFR African American 77.2 (>60); EGFR Non-African American 63.8 (>60); Globulin 4.2 g/dL (2-4); Hematocrit 56 % (42-52); Hemoglobin 19.4 g/dL (14.0-18.0); Mean Corpuscular HGB Conc 35 g/dL (31-36); Mean Corpuscular Hemoglobin 30 pg (27-31); Mean Corpuscular Volume 86 fL (80-94); Mean Platelet Volume 8.1 fL (7.4-10.4); Platelet Count 361 10^3/uL (150-450); Potassium 3.3 mmol/L (3.5-5.0); Red Blood Count 6.44 10^6 /uL (4.18-5.48); Red Cell Distribution Width 14 % (10-15); Total Bilirubin 0.4 mg/dL (0.2-1.0); Total Protein 9.9 g/dL (6.4-8.9); White Blood Count 21.3 10^3/uL (3.5-10.8)
[2019-10-14] MEDS ORDERED: Metoclopramide IV* 5 MG/ML 2 ML VIAL IV ONE (20:16)
[2019-10-14 20:33] LABS: Influenza A Molecular NEGATIVE (Negative); Influenza B Molecular NEGATIVE (Negative)
[2019-10-14 21:05] LABS: ABS Lymphocytes 1.7 10^3/ul (1.0-4.8); ABS Monocytes 1.8 10^3/ul (0-0.8); ABS Neutrophils 17.8 10^3/ul (1.5-7.7); Lymphocyte % 7.9 %
[2019-10-14 21:51] LABS: Urine Appearance Cloudy; Urine Bilirubin Negative (Negative); Urine Blood 1+ (Negative); Urine Color Amber; Urine Glucose 1+(50 mg/dL) (Negative); Urine Ketones Trace (Negative); Urine Nitrite Negative (Negative); Urine Protein 2+(100 mg/dL) (Negative); Urine Specific Gravity 1.039 (1.010-1.030); Urine Urobilinogen Negative (Negative)
[2019-10-14 21:54] LABS: Urine Bacteria Absent (Absent); Urine Red Blood Cell 2+(6-10/hpf) (Absent); Urine White Blood Cell 3+(>20/hpf) (Absent)
[2019-10-14 22:30] LABS: Urine Benzodiazepine Screen None Detected (None Detect); Urine Opiates Screen None Detected (None Detect)
[2019-10-14 22:46] VITALS: BP 125/74
== END 2019-10-14 22:44 | disposition home or self-care (01) ==
LOC: ED 17:07
DX: R11.10 Vomiting, unspecified (principal); I10 Essential (primary) hypertension; J45.909 Unspecified asthma, uncomplicated; K21.9 Gastro-esophageal reflux disease without esophagitis; F17.200 Nicotine dependence, unspecified, uncomplicated; Z79.899 Other long term (current) drug therapy
CPT/HCPCS: 36415; 80053; 80307; 81003; 81015; 83605; 85025; 87040; 87086; 96361; 96374; 96375; 99283; J2405; J2765

== ENCOUNTER → 2019-11-18 07:47 | Emergency (ER) | payer SELFPAY ==
[~2019-11-18 07:47] MED LIST: Al Hydrox/Mg Hydrox/Simet LIQ* 30 ML UDC PO ONE; Famotidine IV* 10 MG/ML 2 ML (20 mg) IV SLOW PU ONE; Morphine 4 MG/ML VIAL (1 ml) 4 MG/ML VIAL IV ONE; NS 0.9% 1000 ML** 1,000 ML IV ONE; Ondansetron INJ* 2 MG/ML VIAL IV ONE
[2019-11-18 09:23] LABS: ABS Basophils 0.1 10^3/ul (0-0.2); ABS Lymphocytes 2.1 10^3/ul (1.0-4.8); ABS Monocytes 1.5 10^3/ul (0-0.8); ABS Neutrophils 12.8 10^3/ul (1.5-7.7); Eosinophil % 0.2 %; Hematocrit 54 % (42-52); Hemoglobin 19.3 g/dL (14.0-18.0); Lymphocyte % 12.8 %; Mean Corpuscular HGB Conc 36 g/dL (31-36); Mean Corpuscular Hemoglobin 30 pg (27-31); Mean Corpuscular Volume 85 fL (80-94); Mean Platelet Volume 8.2 fL (7.4-10.4); Platelet Count 320 10^3/uL (150-450); Red Blood Count 6.39 10^6 /uL (4.18-5.48); Red Cell Distribution Width 14 % (10-15); White Blood Count 16.6 10^3/uL (3.5-10.8)
[2019-11-18 11:08] LABS: Potassium 3.8 mmol/L (3.5-5.0)
[2019-11-18 11:09] LABS: BUN/Creatinine Ratio 16.7 (8-20); EGFR African American 69.2 (>60); EGFR Non-African American 57.2 (>60)
[2019-11-18 11:10] LABS: Albumin 5.7 g/dL (3.2-5.2); Albumin/Globulin Ratio 1.5 (1-3); Globulin 3.9 g/dL (2-4); Total Bilirubin 0.6 mg/dL (0.2-1.0); Total Protein 9.6 g/dL (6.4-8.9)
[2019-11-18 11:11] LABS: C Reactive Protein 6.28 mg/L (<8.01)
[2019-11-18 13:21] VITALS: BP 132/89
--- NOTE | 2019-11-18 13:46 | ED ---
Abdominal Pain/Male - HPI Summary HPI Summary: This patient is a 29-year-old diabetic male with history of hypertension presenting to the ED with acute onset nausea, vomiting 2 days. He is also endorsing epigastric tenderness associated with the nausea and vomiting. He has not taken anything at home for relief. He does admit to marijuana use daily , rare alcohol use. Denies any fevers but has had sweats and chills. Denies any urinary symptoms or back pain. Denies any melena, hematochezia, hematemesis , diarrhea or constipation. Patient has been eating and drinking well right up until 3 days ago when he began to have emesis. He rates his pain an 8/10, has been vomiting every 2-3 hours for the past 2 days. No current modifying factors. No urinary symptoms. - History of Current Complaint Chief Complaint: EDAbdPain Stated Complaint: VOMITTING PER EMS Time Seen by Provider: 11/18/19 07:50 Hx Obtained From: Patient Onset/Duration: Gradual Onset Timing: Constant Severity Initially: Moderate Severity Currently: Moderate Pain Intensity: 1 Pain Scale Used: 0-10 Numeric Location: Epigastric Radiates: No Character: Sharp Aggravating Factor(s): Nothing Alleviating Factor(s): Nothing Associated Signs And Symptoms: Positive: Nausea, Vomiting - Allergies/Home Medications Allergies/Adverse Reactions: Allergies Allergy/AdvReac Type Severity Reaction Status Date / Time No Known Allergies Allergy Verified 11/18/19 07:57 PMH/Surg Hx/FS Hx/Imm Hx Previously Healthy: Yes Endocrine/Hematology History: Reports: Hx Diabetes - "borderline" no med Denies: Hx Anticoagulant Therapy Cardiovascular History: Reports: Hx Hypertension Respiratory History: Reports: Hx Asthma GI History: Reports: Hx Gastroesophageal Reflux Disease, Hx Gastrointestinal Bleed, Other GI Disorders - hepatitis C, pancreatitis History: Denies: Hx Renal Disease, Other Problems/Disorders Musculoskeletal History: Reports: Hx Orthopedic Injury - broken right hand- surgery to repair - Cancer History Hx Chemotherapy: No Hx Radiation Therapy: No - Surgical History Surgery Procedure, Year, and Place: Repair of right broken wrist/hand - Immunization History Date of Tetanus Vaccine: Unsure Hx Pertussis Vaccination: No Immunizations Up to Date: Yes Infectious Disease History: No Infectious Disease History: Reports: Hx Hepatitis - HEP C from father Denies: Traveled Outside the [place] in Last 30 Days - Family History Known Family History: Positive: Hypertension, Diabetes - Social History Occupation: Employed Full-time Lives: With Family Alcohol Use: None Hx Substance Use: Yes Substance Use Type: Reports: Marijuana Substance Use Comment - Amount & Last Used: occasionally Hx Tobacco Use: Yes Smoking Status (MU): Heavy Every Day Tobacco Smoker Review of Systems Negative: Fever, Chills, Fatigue, Skin Diaphoresis Negative: Palpitations, Chest Pain Negative: Shortness Of Breath, Cough Positive: Abdominal Pain, Vomiting, Nausea Genitourinary: Negative Positive: no symptoms reported, see HPI Negative: Rash, Bruising Neurological: Negative All Other Systems Reviewed And Are Negative: Yes Physical Exam Triage Information Reviewed: Yes Vital Signs On Initial Exam: Initial Vitals Temp Pulse Resp BP Pulse Ox 99.8 F 78 20 154/87 95 11/18/19 07:53 11/18/19 07:53 11/18/19 07:53 11/18/19 07:53 11/18/19 07:53 Vital Signs Reviewed: Yes Appearance: Positive: No Pain Distress Skin: Positive: Warm, Skin Color Reflects Adequate Perfusion Head/Face: Positive: Normal Head/Face Inspection Eyes: Positive: EOMI, PILAR, Conjunctiva Clear Neck: Positive: Supple, No Lymphadenopathy Respiratory/Lung Sounds: Positive: Clear to Auscultation, Breath Sounds Present Cardiovascular: Positive: RRR, Pulses are Symmetrical in both Upper and Lower Extremities Abdomen Description: Positive: Soft. Negative: CVA Tenderness (R), CVA Tenderness (L), Distended, Guarding Musculoskeletal: Positive: Normal, Strength/ROM Intact Neurological: Positive: Sensory/Motor Intact, Alert, Oriented to Person Place, Time, Speech Normal Psychiatric: Positive: Affect/Mood Appropriate Procedures - Sedation Patient Received Moderate/Deep Sedation with Procedure: No Diagnostics - Vital Signs Vital Signs Temp Pulse Resp BP Pulse Ox 11/18/19 13:19 97.9 F 68 18 132/89 98 11/18/19 12:57 150/101 11/18/19 11:27 135/83 11/18/19 10:57 140/91 11/18/19 10:27 137/85 11/18/19 09:57 133/84 11/18/19 09:29 171/115 11/18/19 09:26 22 11/18/19 08:57 136/90 11/18/19 08:32 78 97 11/18/19 08:27 139/93 11/18/19 07:53 99.8 F 78 20 154/87 95 - Laboratory Lab Results: Lab Results 11/18/19 11/18/19 Range/Units 09:14 09:14 WBC 16.6 H (3.5-10.8) 10^3/uL RBC 6.39 H (4.18-5.48) 10^6 /uL Hgb 19.3 H (14.0-18.0) g/dL Hct 54 H (42-52) % MCV 85 (80-94) fL MCH 30 (27-31) pg MCHC 36 (31-36) g/dL RDW 14 (10-15) % Plt Count 320 (150-450) 10^3/uL MPV 8.2 (7.4-10.4) fL Neut % (Auto) 77.5 % Lymph % (Auto) 12.8 % [place] % (Auto) 9.0 % Eos % (Auto) 0.2 % Baso % (Auto) 0.5 % Absolute Neuts (auto) 12.8 H (1.5-7.7) 10^3/ul Absolute Lymphs (auto) 2.1 (1.0-4.8) 10^3/ul Absolute Monos (auto) 1.5 H (0-0.8) 10^3/ul Absolute Eos (auto) 0.0 (0-0.6) 10^3/ul Absolute Basos (auto) 0.1 (0-0.2) 10^3/ul Absolute Nucleated RBC 0.0 10^3/ul Nucleated RBC % 0.0 Sodium 134 L (135-145) mmol/L Potassium 3.8 (3.5-5.0) mmol/L Chloride 90 L (101-111) mmol/L Carbon Dioxide 27 (22-32) mmol/L Anion Gap 17 H (2-11) mmol/L BUN 24 (6-24) mg/dL Creatinine 1.44 H (0.67-1.17) mg/dL Est GFR ( Amer) 69.2 (>60) Est GFR (Non-Af Amer) 57.2 (>60) BUN/Creatinine Ratio 16.7 (8-20) Glucose 138 H (70-100) mg/dL Calcium 11.0 H (8.6-10.3) mg/dL Total Bilirubin 0.60 (0.2-1.0) mg/dL AST 13 (13-39) U/L ALT 21 (7-52) U/L Alkaline Phosphatase 148 H (34-104) U/L C-Reactive Protein 6.28 (<8.01) mg/L Total Protein 9.6 H (6.4-8.9) g/dL Albumin 5.7 H (3.2-5.2) g/dL Globulin 3.9 (2-4) g/dL Albumin/Globulin Ratio 1.5 (1-3) Result Diagrams: 11/18/19 09:14 11/18/19 09:14 Lab Statement: Any lab studies that have been ordered have been reviewed, and results considered in the medical decision making process. Abdominal Pain Male Course/Dx - Course Course Of Treatment: During his course of treatment, the patient is evaluated for acute onset nausea, vomiting with epigastric tenderness. Patient denies any RLQ or LLQ tenderness. Denies any abdominal surgeries. Labs obtained which show an elevated RBC is 6.39, H&H is 19 and 54 respectively. No elevation of CRP. Glucose 138. Sodium 134. Normal potassium. Patient is given 2 L fluids, Zofran, morphine, Maalox and famotidine. On reexamination, patient is feeling much improved. He states he still has some epigastric tenderness, but denies nausea and has had no emesis since arrival to the ED. Patient states he feels comfortable going home. Prescription for Zofran given. Patient is tolerating PO prior to discharge. He does admit not taking any medications for his diabetes since he has no insurance and has not for several years. States he is unable to follow up. Discussed return to the ED if he develops any worsening symptoms. - Diagnoses Differential Diagnosis/HQI/PQRI: Constipation Provider Diagnoses: Abdominal pain, Vomiting, Nausea Discharge ED - Sign-Out/Discharge Documenting (check all that apply): Patient Departure - Discharge Plan Condition: Stable Disposition: HOME Patient Education Materials: Acute Nausea and Vomiting (ED) Referrals: No Primary Care Phys,NOPCP [Primary Care Provider] - Additional Instructions: Eat small amounts at a time, including crackers, toast, chicken noodle soup and wiliam shanti Drink plenty of fluids During Gatorade daily until you feel repleted with your fluids Tylenol and ibuprofen for any abdominal discomfort Maalox plus [id number] if you continue to have epigastric discomfort from vomiting Zofran up to 4 times daily as needed for nausea and vomiting Return to the ED if you develop any worsening or changing symptoms - Billing Disposition and Condition Condition: STABLE Disposition: Home
== END | disposition home or self-care (01) ==
LOC: ED 07:47
DX: R10.9 Unspecified abdominal pain (principal); R11.2 Nausea with vomiting, unspecified; I10 Essential (primary) hypertension; K21.9 Gastro-esophageal reflux disease without esophagitis; F17.210 Nicotine dependence, cigarettes, uncomplicated
CPT/HCPCS: 36415; 80053; 85025; 86140; 96361; 96374; 96375; 99284; A9270-GY; J2270; J2405

== ENCOUNTER 2019-12-21 06:29 | Emergency (ER) | payer SELFPAY ==
[2019-12-21] MEDS ORDERED: NS 0.9% 1000 ML** 1,000 ML IV ONE (06:41)
[2019-12-21] MEDS ORDERED: Metoclopramide IV* 5 MG/ML 2 ML VIAL IV ONE (06:43)
[2019-12-21] MEDS ORDERED: Lidocaine 2% VISCOUS* 15 ML UDC PO ONE (06:44)
[2019-12-21] MEDS ORDERED: Al Hydrox/Mg Hydrox/Simet LIQ* 30 ML UDC PO ONE (06:44)
--- NOTE | 2019-12-21 06:52 | ED ---
Nausea/Vomiting/Diarrhea HPI - HPI Summary HPI Summary: Pt. is a 29 y.o male who presents to the ER for vomiting and diarrhea that started yesterday. Pt. notes diffuse abdominal cramping. Pt. has a hx of cyclic vomiting and THC use. Pt. states he has cut back on THC and sxs have been better. Pt. notes that his son was sick with V/D this week. Sxs are moderate in severity. No current modifying factors. No past hx. - History of Current Complaint Chief Complaint: EDNauseaVomitDiarrh Stated Complaint: FLU SYMPTONS PER EMS Time Seen by Provider: 12/21/19 06:32 Hx Obtained From: Patient Pain Intensity: 8 - Allergies/Home Medications Allergies/Adverse Reactions: Allergies Allergy/AdvReac Type Severity Reaction Status Date / Time No Known Allergies Allergy Verified 12/21/19 06:41 PMH/Surg Hx/FS Hx/Imm Hx Previously Healthy: Yes Endocrine/Hematology History: Reports: Hx Diabetes - "borderline" no med Denies: Hx Anticoagulant Therapy Cardiovascular History: Reports: Hx Hypertension Respiratory History: Reports: Hx Asthma GI History: Reports: Hx Gastroesophageal Reflux Disease, Hx Gastrointestinal Bleed, Other GI Disorders - hepatitis C, pancreatitis History: Denies: Hx Renal Disease, Other Problems/Disorders Musculoskeletal History: Reports: Hx Orthopedic Injury - broken right hand- surgery to repair - Cancer History Hx Chemotherapy: No Hx Radiation Therapy: No - Surgical History Surgery Procedure, Year, and Place: Repair of right broken wrist/hand - Immunization History Date of Tetanus Vaccine: Unsure Infectious Disease History: No Infectious Disease History: Reports: Hx Hepatitis - HEP C from father Denies: Traveled Outside the [place] in Last 30 Days - Family History Known Family History: Positive: Hypertension, Diabetes, Non-Contributory - Social History Occupation: Unemployed Lives: With Family Alcohol Use: Rare Hx Substance Use: Yes Substance Use Type: Reports: Marijuana Substance Use Comment - Amount & Last Used: occasionally Hx Tobacco Use: Yes Smoking Status (MU): Heavy Every Day Tobacco Smoker Review of Systems - ROS Summary Review of Systems Summary: Simethicone [Gas-X] 1 tab PO DAILY PRN 06/11/19 [History Confirmed 12/21/19] Metoclopramide TAB* [Reglan TAB*] 10 mg PO Q6H PRN #12 tab 12/21/19 [Rx] Constitutional: Negative Negative: Fever Positive: Chest Pain Respiratory: Negative Positive: Abdominal Pain, Vomiting, Diarrhea, Nausea Genitourinary: Negative Neurological/Mental Status: Negative All Other Systems Reviewed And Are Negative: Yes Physical Exam Triage Information Reviewed: Yes Vital Signs On Initial Exam: Initial Vitals Temp Pulse Resp BP Pulse Ox 99.8 F 85 24 165/108 95 12/21/19 06:31 12/21/19 06:31 12/21/19 06:31 12/21/19 06:31 12/21/19 06:31 Vital Signs Reviewed: Yes Appearance: Positive: Well-Appearing - P. lying in bed in NAD. Skin: Positive: Warm, Dry Head/Face: Positive: Normal Head/Face Inspection Eyes: Positive: Normal, EOMI Neck: Positive: Supple Respiratory/Lung Sounds: Positive: Clear to Auscultation, Breath Sounds Present Cardiovascular: Positive: Normal, RRR Abdomen Description: Positive: Nontender, Soft Neurological: Positive: Normal, CN Intact II-III Psychiatric: Positive: Affect/Mood Appropriate Procedures - Sedation Patient Received Moderate/Deep Sedation with Procedure: No Diagnostics - Vital Signs Vital Signs Temp Pulse Resp BP Pulse Ox 12/21/19 06:31 99.8 F 85 24 165/108 95 - Laboratory Result Diagrams: 12/21/19 06:52 12/21/19 06:52 Lab Statement: Any lab studies that have been ordered have been reviewed, and results considered in the medical decision making process. Naus/Vom/Diarrhea Course/Dx - Course Course Of Treatment: Pt. with N/V. He is afebrile with stable VS. Abd. is soft without reproducible pain. Pt. given IV fluids, reglan and GI cocktail. ECG done at 0650 shows a sinus rhythm of 67bpm, normal axis, appropriate intervals, no STEMI. Labs show WBC of 15.8. Chronically elevated WBC. On re-exam pt. feeling better. Tolerating water, crackers, and applesauce. Will dc home. To . with [facility] if sxs persist. Will return to er for uncontrollable vomiting, increased abd. pain or if concerned. - Differential Dx/Diagnosis Differential Diagnoses - Male: Appendicitis, Bowel Obstruction, Vomiting, Diarrhea, Colitis Provider Diagnosis: Nausea & vomiting Condition At Discharge: Improved Discharge ED - Sign-Out/Discharge Documenting (check all that apply): Patient Departure - Discharge Plan Condition: Improved Disposition: HOME Prescriptions: Metoclopramide TAB* [Reglan TAB*] 10 mg PO Q6H PRN #12 tab PRN Reason: Nausea Patient Education Materials: Acute Nausea and Vomiting (ED) Referrals: [facility] [Outside] [facility] [place] [place] [facility] [Outside] Additional Instructions: Follow up with the [facility] if symptoms persist Increase fluids Avoid marijuana Return to ER for uncontrollable vomiting, increase abdominal pain, fever, or if concerned - Billing Disposition and Condition Condition: IMPROVED Disposition: Home - Attestation Statements Provider Attestation: I was available for consult. This patient was seen by the [facility]. The patient was not presented to, seen by, or examined by me. -Adela
[2019-12-21 07:03] LABS: Hematocrit 50 % (42-52); Hemoglobin 17.4 g/dL (14.0-18.0); Mean Corpuscular HGB Conc 35 g/dL (31-36); Mean Corpuscular Hemoglobin 30 pg (27-31); Mean Corpuscular Volume 86 fL (80-94); Platelet Count 302 10^3/uL (150-450); Red Blood Count 5.78 10^6 /uL (4.18-5.48); Red Cell Distribution Width 14 % (10-15); White Blood Count 15.8 10^3/uL (3.5-10.8)
[2019-12-21 07:24] LABS: Calcium 9.7 mg/dL (8.6-10.3); Magnesium 1.9 mg/dL (1.9-2.7); Potassium 3.4 mmol/L (3.5-5.0); Total Bilirubin 0.6 mg/dL (0.2-1.0)
[2019-12-21 07:31] LABS: Albumin/Globulin Ratio 1.4 (1-3); EGFR African American 105.5 (>60); EGFR Non-African American 87.2 (>60); Globulin 3.5 g/dL (2-4); Total Protein 8.5 g/dL (6.4-8.9)
[2019-12-21 08:10] LABS: ABS Basophils 0.1 10^3/ul (0-0.2); ABS Lymphocytes 1.7 10^3/ul (1.0-4.8); ABS Monocytes 1.6 10^3/ul (0-0.8); ABS Neutrophils 12.5 10^3/ul (1.5-7.7)
[2019-12-21 08:47] VITALS: BP 121/75
== END 2019-12-21 08:50 | disposition home or self-care (01) ==
LOC: ED 06:29
DX: R11.2 Nausea with vomiting, unspecified (principal); I10 Essential (primary) hypertension; J45.909 Unspecified asthma, uncomplicated; K21.9 Gastro-esophageal reflux disease without esophagitis; F17.200 Nicotine dependence, unspecified, uncomplicated
CPT/HCPCS: 36415; 80053; 83690; 83735; 85025; 93005; 96361; 96374; 99283; A9270-GY; J2765

== ENCOUNTER 2020-01-07 07:51 | Emergency (ER) | payer SELFPAY ==
[2020-01-07] MEDS ORDERED: NS 0.9% 1000 ML** 1,000 ML IV ONE ×2 (08:04→10:39)
[2020-01-07] MEDS ORDERED: Al Hydrox/Mg Hydrox/Simet LIQ* 30 ML UDC PO ONE (08:05)
[2020-01-07] MEDS ORDERED: Famotidine IV* 10 MG/ML 2 ML (20 mg) IV SLOW PU ONE (08:05)
[2020-01-07] MEDS ORDERED: Ondansetron INJ* 2 MG/ML VIAL IV ONE (08:05)
[2020-01-07] MEDS ORDERED: Morphine 4 MG/ML VIAL (1 ml) 4 MG/ML VIAL IV ONE (08:05)
[2020-01-07 08:35] LABS: ABS Lymphocytes 1.7 10^3/ul (1.0-4.8); ABS Monocytes 0.8 10^3/ul (0-0.8); ABS Neutrophils 9.5 10^3/ul (1.5-7.7); Hematocrit 53 % (42-52); Hemoglobin 18.3 g/dL (14.0-18.0); Lymphocyte % 13.8 %; Mean Corpuscular HGB Conc 34 g/dL (31-36); Mean Corpuscular Hemoglobin 30 pg (27-31); Mean Corpuscular Volume 87 fL (80-94); Mean Platelet Volume 8.3 fL (7.4-10.4); Platelet Count 376 10^3/uL (150-450); Red Blood Count 6.12 10^6 /uL (4.18-5.48); Red Cell Distribution Width 15 % (10-15); White Blood Count 12.1 10^3/uL (3.5-10.8)
[2020-01-07 09:00] LABS: Albumin 5.4 g/dL (3.2-5.2); Albumin/Globulin Ratio 1.5 (1-3); BUN/Creatinine Ratio 9.9 (8-20); C Reactive Protein 7.64 mg/L (<8.01); Calcium 10.8 mg/dL (8.6-10.3); EGFR African American 117.6 (>60); EGFR Non-African American 97.2 (>60); Globulin 3.7 g/dL (2-4); Magnesium 2.2 mg/dL (1.9-2.7); Potassium 3.3 mmol/L (3.5-5.0); Total Bilirubin 0.5 mg/dL (0.2-1.0); Total Protein 9.1 g/dL (6.4-8.9)
[2020-01-07] MEDS ORDERED: Haloperidol INJ IV/IM* 5 MG/ML AMP IV SLOW PU ONE (10:40)
--- NOTE | 2020-01-07 12:10 | ED ---
Nausea/Vomiting/Diarrhea HPI - HPI Summary HPI Summary: This patient is a 29-year-old male with a history of intractable vomiting presenting to the ED with nausea and vomiting with mid epigastric pain and hematemesis 4 days. Denies any diarrhea or constipation. Denies any abnormal food intake. Sxs began 4 days ago, have remained constant and denies radiation of pain. Sxs are diffusely throughout the abdomen, worse to the epigastric region after emesis. No pain to the bilateral flanks, no UA symptoms, no cough or congestion. No recent illness, fevers, sweats, chills or travel. Endorses hematemesis over the past 4 days which he describes as "severe" but denies blood clots. Unable to quantify further. No weakness, although pt endorses decreased PO intake d/t persistent vomiting. - History of Current Complaint Chief Complaint: EDAbdPain Stated Complaint: VOMITING Time Seen by Provider: 01/07/20 07:58 Hx Obtained From: Patient Onset/Duration: Sudden Onset Timing: Constant Severity Initially: Severe Severity Currently: Severe Pain Intensity: 8 Pain Scale Used: 0-10 Numeric Character: Burning, Cramping Aggravating Factor(s): Food Alleviating Factor(s): Nothing Nausea/Vomiting Presence: Nauseated, Vomiting Vomiting Frequency: Every 1-2 hours Nausea/Vomiting Duration: 12-24 hours Vomiting Characteristics: Retching Diarrhea Presence: No - Risk Factors Influenza Risk Factors: Negative Surgical Obstruction Risk Factor(s): Negative - Allergies/Home Medications Allergies/Adverse Reactions: Allergies Allergy/AdvReac Type Severity Reaction Status Date / Time No Known Allergies Allergy Verified 01/07/20 07:57 Home Medications: Home Medications Al Hydrox/Mg Hydrox/Simet LIQ* [Maalox Plus*] 30 ml PO Q4H PRN #1 bottle MDD 6 01/07/20 [Rx] Ondansetron ODT TAB* [Zofran 4 MG Odt TAB*] 4 mg PO Q6H PRN #20 tab.odt MDD 4 [Rx] PMH/Surg Hx/FS Hx/Imm Hx Previously Healthy: Yes Endocrine/Hematology History: Reports: Hx Diabetes - "borderline" no med Denies: Hx Anticoagulant Therapy Cardiovascular History: Reports: Hx Hypertension Respiratory History: Reports: Hx Asthma GI History: Reports: Hx Gastroesophageal Reflux Disease, Hx Gastrointestinal Bleed, Other GI Disorders - hepatitis C, pancreatitis History: Denies: Hx Renal Disease, Other Problems/Disorders Musculoskeletal History: Reports: Hx Orthopedic Injury - broken right hand- surgery to repair - Cancer History Hx Chemotherapy: No Hx Radiation Therapy: No - Surgical History Surgery Procedure, Year, and Place: Repair of right broken wrist/hand - Immunization History Date of Tetanus Vaccine: Unsure Hx Pertussis Vaccination: No Immunizations Up to Date: Yes Infectious Disease History: No Infectious Disease History: Reports: Hx Hepatitis - HEP C from father Denies: Traveled Outside the [place] in Last 30 Days - Family History Known Family History: Positive: Hypertension, Diabetes, Non-Contributory - Social History Occupation: Employed Part-time Lives: With Family Alcohol Use: None Hx Substance Use: Yes Substance Use Type: Reports: Marijuana Substance Use Comment - Amount & Last Used: occasionally Hx Tobacco Use: Yes Smoking Status (MU): Heavy Every Day Tobacco Smoker Review of Systems Negative: Fever, Chills, Fatigue, Skin Diaphoresis Negative: Palpitations, Chest Pain Negative: Shortness Of Breath, Cough Positive: Abdominal Pain, Vomiting, Nausea. Negative: Diarrhea Genitourinary: Negative Positive: no symptoms reported, see HPI Negative: Arthralgia, Myalgia Neurological/Mental Status: Negative All Other Systems Reviewed And Are Negative: Yes Physical Exam Triage Information Reviewed: Yes Vital Signs On Initial Exam: Initial Vitals Temp Pulse Resp BP Pulse Ox 99.4 F 90 16 160/110 95 01/07/20 07:55 01/07/20 07:55 01/07/20 07:55 01/07/20 07:55 01/07/20 07:55 Vital Signs Reviewed: Yes Appearance: Positive: Ill-Appearing, Pain Distress Skin: Positive: Warm, Skin Color Reflects Adequate Perfusion Head/Face: Positive: Normal Head/Face Inspection Eyes: Positive: EOMI, Conjunctiva Clear Neck: Positive: Supple, No Lymphadenopathy Respiratory/Lung Sounds: Positive: Clear to Auscultation, Breath Sounds Present Cardiovascular: Positive: Pulses are Symmetrical in both Upper and Lower Extremities Abdomen Description: Positive: Nontender, No Organomegaly, Soft Bowel Sounds: Positive: Present Musculoskeletal: Positive: Normal, Strength/ROM Intact Neurological: Positive: Speech Normal Psychiatric: Positive: Affect/Mood Appropriate AVPU Assessment: Alert Procedures - Sedation Patient Received Moderate/Deep Sedation with Procedure: No Diagnostics - Vital Signs Vital Signs Temp Pulse Resp BP Pulse Ox 01/07/20 10:45 90 165/102 98 01/07/20 10:14 82 114/77 95 01/07/20 10:00 80 95 01/07/20 09:44 71 120/68 94 01/07/20 09:14 68 125/64 93 01/07/20 09:00 76 92 01/07/20 08:44 70 112/67 92 01/07/20 08:21 18 01/07/20 08:14 69 175/101 85 01/07/20 07:55 99.4 F 90 16 160/110 95 - Laboratory Lab Results: Lab Results 01/07/20 01/07/20 01/07/20 Range/Units 08:20 08:20 08:20 WBC 12.1 H (3.5-10.8) 10^3/uL RBC 6.12 H (4.18-5.48) 10^6 /uL Hgb 18.3 H (14.0-18.0) g/dL Hct 53 H (42-52) % MCV 87 (80-94) fL MCH 30 (27-31) pg MCHC 34 (31-36) g/dL RDW 15 (10-15) % Plt Count 376 (150-450) 10^3/uL MPV 8.3 (7.4-10.4) fL Neut % (Auto) 78.9 % Lymph % (Auto) 13.8 % [place] % (Auto) 7.0 % Eos % (Auto) 0.0 % Baso % (Auto) 0.3 % Absolute Neuts (auto) 9.5 H (1.5-7.7) 10^3/ul Absolute Lymphs (auto) 1.7 (1.0-4.8) 10^3/ul Absolute Monos (auto) 0.8 (0-0.8) 10^3/ul Absolute Eos (auto) 0.0 (0-0.6) 10^3/ul Absolute Basos (auto) 0.0 (0-0.2) 10^3/ul Absolute Nucleated RBC 0.0 10^3/ul Nucleated RBC % 0.0 Sodium 137 (135-145) mmol/L Potassium 3.3 L (3.5-5.0) mmol/L Chloride 93 L (101-111) mmol/L Carbon Dioxide 31 (22-32) mmol/L Anion Gap 13 H (2-11) mmol/L BUN 9 (6-24) mg/dL Creatinine 0.91 (0.67-1.17) mg/dL Est GFR ( Amer) 117.6 (>60) Est GFR (Non-Af Amer) 97.2 (>60) BUN/Creatinine Ratio 9.9 (8-20) Glucose 143 H (70-100) mg/dL Lactic Acid 2.0 (0.5-2.0) mmol/L Calcium 10.8 H (8.6-10.3) mg/dL Magnesium 2.2 (1.9-2.7) mg/dL Total Bilirubin 0.50 (0.2-1.0) mg/dL AST 17 (13-39) U/L ALT 20 (7-52) U/L Alkaline Phosphatase 135 H (34-104) U/L C-Reactive Protein 7.64 (<8.01) mg/L Total Protein 9.1 H (6.4-8.9) g/dL Albumin 5.4 H (3.2-5.2) g/dL Globulin 3.7 (2-4) g/dL Albumin/Globulin Ratio 1.5 (1-3) Lipase 31 (11.0-82.0) U/L Result Diagrams: 01/07/20 08:20 0320 08:20 Lab Statement: Any lab studies that have been ordered have been reviewed, and results considered in the medical decision making process. Naus/Vom/Diarrhea Course/Dx - Course Course Of Treatment: This patient is evaluated for intractable vomiting 4 days. Patient was given Zofran, morphine, Maalox and famotidine. Discussed with good effect. He was also given 2 L normal saline. Approximately 1.5 hours after administration, patient complains of further nausea and vomiting with epigastric tenderness. Currently denying any hematemesis, however has stated he has had this over the past 4 days. Denies history of pancreatitis. Rare alcohol use. Endorses smoking history and smokes marijuana. Pt is subsequently given 5 mg IV Haldol. Labs obtained which are consistent with his previous visits of intractable vomiting. Elevated WBC, hbg, hct showing dehydration and WBC likely secondary to emesis, although lactic was WNL. Pt feeling improved and currently denying any nausea or vomiting. Will send home with rx for zofran. Dx with intractable vomiting with possible component of cyclic vomiting. - Differential Dx/Diagnosis Differential Diagnoses - Male: Vomiting - cyclic vomiting, epigastric pain, intractable vomiting Provider Diagnosis: Nausea and vomiting Condition At Discharge: Stable Discharge ED - Sign-Out/Discharge Documenting (check all that apply): Patient Departure - Discharge Plan Condition: Stable Disposition: HOME Prescriptions: Al Hydrox/Mg Hydrox/Simet LIQ* [Maalox Plus*] 30 ml PO Q4H PRN #1 bottle MDD 6 PRN Reason: Pain - Mild Ondansetron ODT TAB* [Zofran 4 MG Odt TAB*] 4 mg PO Q6H PRN #20 tab.odt MDD 4 PRN Reason: Nausea Patient Education Materials: Cyclic Vomiting Syndrome (ED) Referrals: No Primary Care Phys,NOPCP [Primary Care Provider] - Additional Instructions: Zofran - take every 6 hours (right before meals) for the next 1-2 days After 1-2 days, you may take only as needed for nausea Maalox plus every 4 hours for epigastric pain - Billing Disposition and Condition Condition: STABLE Disposition: Home
[2020-01-07 13:43] VITALS: BP 105/56
== END 2020-01-07 13:41 | disposition home or self-care (01) ==
LOC: ED 07:51
DX: R11.2 Nausea with vomiting, unspecified (principal); R10.13 Epigastric pain; F17.200 Nicotine dependence, unspecified, uncomplicated
CPT/HCPCS: 36415; 80053; 83605; 83690; 83735; 85025; 86140; 96361; 96374; 96375; 99285; A9270-GY; J1630; J2270; J2405

== ENCOUNTER 2020-02-03 18:41 | Emergency (ER) | payer OTHER ==
[2020-02-03] MEDS ORDERED: Ketorolac INJ* 30 MG/ML 1 ML VIAL IV PUSH ONE (18:55)
[2020-02-03] MEDS ORDERED: Metoclopramide IV* 5 MG/ML 2 ML VIAL IV SLOW PU ONE (18:55)
[2020-02-03] MEDS ORDERED: NS 0.9% 1000 ML** 2,000 ML IV ONE (18:56)
[2020-02-03] MEDS ORDERED: Pantoprazole IV* 40 MG IV ONE (18:56)
--- NOTE | 2020-02-03 19:07 | ED ---
GI/ HPI - HPI Summary HPI Summary: 29 year old male presents with muscle aches for the past 3 days. he has history of nausea vomiting today. He admits to generalized bowel pain. No diarrhea. He has history cyclic vomiting and pancreatitis but states this doesn 't feel like this. He denies any known fever. Admits to a cough. He did have a sore throat yesterday. He admits to occasionally sinus congestion. He states he has been unable to keep anything down. He admits to muscle aches all over. He states he feels very weak. Has history of diabetes which doesn't check his sugar and is not any meds and high blood pressure. He has not been urinating as much. He denies any urinary symptoms. no recent travel. no one around him is sick. - History of Current Complaint Time Seen by Provider: 02/03/20 18:47 Stated Complaint: BODY ACHES/VOMITING/WEAKNESS - Additional Pertinent History Primary Care Physician: DAYAN - Allergy/Home Medications Allergies/Adverse Reactions: Allergies Allergy/AdvReac Type Severity Reaction Status Date / Time No Known Allergies Allergy Verified 02/03/20 20:04 Home Medications: Home Medications Al Hydrox/Mg Hydrox/Simet LIQ* [Maalox Plus*] 1 tbsp PO DAILY 02/03/20 [History Confirmed 02/03/20] Ondansetron ODT TAB* [Zofran 4 MG Odt TAB*] 4 mg PO Q6H PRN #16 tab.odt [Rx] PMH/Surg Hx/FS Hx/Imm Hx Endocrine/Hematology History: Reports: Hx Diabetes - "borderline" no med Denies: Hx Anticoagulant Therapy Cardiovascular History: Reports: Hx Hypertension Respiratory History: Reports: Hx Asthma GI History: Reports: Hx Gastroesophageal Reflux Disease, Hx Gastrointestinal Bleed, Other GI Disorders - hepatitis C, pancreatitis History: Denies: Hx Renal Disease, Other Problems/Disorders Musculoskeletal History: Reports: Hx Orthopedic Injury - broken right hand- surgery to repair - Cancer History Hx Chemotherapy: No Hx Radiation Therapy: No - Surgical History Surgery Procedure, Year, and Place: Repair of right broken wrist/hand - Immunization History Date of Tetanus Vaccine: Unsure Infectious Disease History: Reports: Hx Hepatitis - HEP C from father - Family History Known Family History: Positive: Hypertension, Diabetes, Non-Contributory - Social History Alcohol Use: None Hx Substance Use: Yes Substance Use Type: Reports: Marijuana Substance Use Comment - Amount & Last Used: occasionally Hx Tobacco Use: Yes Smoking Status (MU): Heavy Every Day Tobacco Smoker Review of Systems Positive: Fatigue. Negative: Fever Positive: Sore Throat, Nasal Discharge Positive: Cough Positive: Abdominal Pain, Vomiting, Nausea. Negative: Diarrhea Positive: Myalgia All Other Systems Reviewed And Are Negative: Yes Physical Exam Triage Information Reviewed: Yes Vital Signs Reviewed: Yes Appearance: Positive: Well-Appearing Skin: Positive: Warm, Dry Head/Face: Positive: Normal Head/Face Inspection Eyes: Positive: Normal, Conjunctiva Clear Respiratory/Lung Sounds: Positive: Clear to Auscultation, Breath Sounds Present Cardiovascular: Positive: Normal, RRR Abdomen Description: Positive: Soft, Other: - mild diffuse abd tenderness Bowel Sounds: Positive: Present Musculoskeletal: Positive: Normal Neurological: Positive: Normal Psychiatric: Positive: Normal Procedures - Sedation Patient Received Moderate/Deep Sedation with Procedure: No Diagnostics - Laboratory Result Diagrams: 02/03/20 20:10 02/03/20 20:10 Lab Statement: Any lab studies that have been ordered have been reviewed, and results considered in the medical decision making process. Re-Evaluation - Re-Evaluation First Eval Re-Evaluation Time: 21:20 Change: Improved Comment: feeling better, GIGU Course/Dx - Course Course Of Treatment: 29 year old male presents with muscle aches for the past 3 days. he has history of nausea vomiting today. He admits to generalized bowel pain. No diarrhea. He has history cyclic vomiting and pancreatitis but states this doesn't feel like this. He denies any known fever. Admits to a cough. He did have a sore throat yesterday. He admits to occasionally sinus congestion. He states he has been unable to keep anything down. He admits to muscle aches all over. He states he feels very weak. Has history of diabetes which doesn't check his sugar and is not any meds and high blood pressure. He has not been urinating as much. He denies any urinary symptoms. On exam mild diffuse abdominal tenderness. tested for covid. wbc 13. crp normal. gave reglan , toradol and protonix and feeling better. will discharge with zofran. patient understand and agrees with plan. - Diagnoses Differential Diagnoses - Male: Gastroenteritis (Bacterial), Gastroenteritis ( Viral), Vomiting Provider Diagnoses: Vomiting, Muscle ache Discharge ED - Sign-Out/Discharge Documenting (check all that apply): Patient Departure - Discharge Plan Condition: Good Disposition: HOME Prescriptions: Ondansetron ODT TAB* [Zofran 4 MG Odt TAB*] 4 mg PO Q6H PRN #16 tab.odt PRN Reason: Nausea Patient Education Materials: Acute Nausea and Vomiting (ED) Forms: COVID-19 Tested & Isolation Referrals: Care [facility] [Outside] Additional Instructions: You have been tested for coronavirus. The department of health will contact you with results when available and with any additional instruction. You should stay in your house and self quarantine. You should wear a mask if you're outside of your personal room. We encourage handwashing as well as limited contact with other people. Can take Zofran every 6 hours as needed for nausea Drink small amounts of fluid as tolerated When able to eat follow BRAT diet: Bananas, rice, applesauce, toast Take Tylenol for pain as needed every 6 hours Follow up with [facility] Return to ED if develop any new or worsening symptoms - Billing Disposition and Condition Condition: GOOD Disposition: Home - Attestation Statements Provider Attestation: I was available for consultation for this patient. I did not evaluate the patient or participate in any medical decision making or disposition decisions unless I am specifically named in the chart as having consulted on the patient. If I have consulted on the patient, please see my own ED note on the patient encounter. Jewels Miller MD
[2020-02-03 20:37] LABS: ABS Lymphocytes 1.7 10^3/ul (1.0-4.8); ABS Monocytes 0.5 10^3/ul (0-0.8); ABS Neutrophils 10.8 10^3/ul (1.5-7.7); Hematocrit 51 % (42-52); Hemoglobin 17.4 g/dL (14.0-18.0); Lymphocyte % 12.7 %; Mean Corpuscular HGB Conc 34 g/dL (31-36); Mean Corpuscular Hemoglobin 30 pg (27-31); Mean Corpuscular Volume 87 fL (80-94); Mean Platelet Volume 8.2 fL (7.4-10.4); Nucleated Red Blood Cells % 0.1; Platelet Count 291 10^3/uL (150-450); Red Blood Count 5.83 10^6 /uL (4.18-5.48); Red Cell Distribution Width 14 % (10-15); White Blood Count 13.1 10^3/uL (3.5-10.8)
[2020-02-03 20:52] LABS: Albumin/Globulin Ratio 1.4 (1-3); C Reactive Protein 6.44 mg/L (<8.01); Calcium 10.4 mg/dL (8.6-10.3); EGFR Non-African American 121.5 (>60); Globulin 3.5 g/dL (2-4); Potassium 3.5 mmol/L (3.5-5.0); Total Bilirubin 0.4 mg/dL (0.2-1.0); Total Protein 8.5 g/dL (6.4-8.9)
[2020-02-03] MEDS ORDERED: O ndansetron ODT 4MG 5TAB PRPK 4 MG PAK PO ONE (21:20)
[2020-02-03 22:51] VITALS: BP 117/86
== END 2020-02-03 22:51 | disposition home or self-care (01) ==
LOC: ED 18:41
DX: R11.2 Nausea with vomiting, unspecified (principal); M79.10 Myalgia, unspecified site; J02.9 Acute pharyngitis, unspecified; R05 Cough; R10.9 Unspecified abdominal pain; F17.210 Nicotine dependence, cigarettes, uncomplicated; K21.9 Gastro-esophageal reflux disease without esophagitis; Z20.828 Contact with and (suspected) exposure to other viral communicable diseases
CPT/HCPCS: 36415; 80053; 82150; 83605; 83690; 83735; 85025; 86140; 87635; 96361; 96374; 96375; 99284; A9270-GY; J1885; J2765